=== PATIENT | female | born 2000 | race Caucasian/White ===

== ENCOUNTER 2019-04-09 16:55 | Emergency (ER) | payer OTHER, SELFPAY ==
[2019-04-09 17:02] VITALS: BP 116/86; PULSE 75; RESP 19; TEMP 36.6; O2SAT 100
[2019-04-09 17:18] LABS: Basophils Percent Auto 0.5 % (0.2-1.2); Eosinophils Absolute Auto 0.1 K/mm3 (0-0.3); Eosinophils Percent Auto 1.2 % (0-4.4); Hematocrit 41.1 % (37.0-47.0); Hemoglobin 13.8 g/dL (12.0-15.0); Immature Granulocyte Absolute 0.02 K/mm3 (0.00-0.031); Immature Granulocyte Percent A 0.2 % (0-0.5); Lymphocytes Absolute Auto 2.89 K/mm3 (0.9-3.2); Lymphocytes Percent Auto 34.3 % (18.3-44.2); Mean Corpuscular HGB Conc 33.6 g/dl (32-36); Mean Corpuscular Hemoglobin 31.3 pg (26-34); Mean Corpuscular Volume 93.2 fl (80-100); Mean Platelet Volume 9.6 fl (7.4-10.4); Monocytes Absolute Auto 0.5 K/mm3 (0.1-0.6); Monocytes Percent Auto 5.9 % (2.6-8.5); Neutrophils Absolute Auto 4.9 K/mm3 (1.3-6.7); Neutrophils Percent Auto 57.9 % (45.5-73.1); Platelet Count Result 321 k/mm3 (150-375); Red Blood Count 4.41 M/mm3 (4.2-5.4); Red Cell Distribution Width 12.5 % (11.5-14.5); White Blood Count 8.4 K/mm3 (4.5-10.0)
[2019-04-09 17:47] LABS: Beta HCG Quantitative < 2.39 mIU/ML
--- NOTE | 2019-04-09 18:33 | PC.NURSE ---
Patient states I have to go fruit picker my other daughter, can you just call me with my results. Pt was educated that results cannot be given via phone and she would need to request from medical records or with PCP. Pt states I'll come back another day when you're not busy.
== END 2019-04-09 18:35 | disposition left against medical advice (07) ==
LOC: ANHED 18:38
PROVIDERS: Emergency Provider Emergency Medicine
DX: Z53.21 Procedure and treatment not carried out due to patient leaving prior to being seen by health care provider (principal)
CPT/HCPCS: 36415; 84702; 85025; 99199

== ENCOUNTER 2019-04-09 21:58 | Emergency (ER) | payer OTHER, SELFPAY ==
[2019-04-09 22:02] VITALS: BP 125/74; PULSE 88; RESP 16; TEMP 36.4; O2SAT 99
--- NOTE | 2019-04-10 00:27 | ED.FEMALEGU ---
HPI - Female Genitourinary General Chief complaint: Urogenital-Female Stated complaint: vaginal bleeding Time Seen by Provider: 04/10/19 00:14 Source: patient and RN notes reviewed Mode of arrival: ambulatory Limitations: no limitations History of Present Illness HPI Narrative: Pt is a 18 y/o female who presents to the ED with c/o heavy vaginal bleeding starting yesterday morning. She notes that she delivered her child in November of 2018, and states that she has had irregular periods ever since. Pt notes that she began having heavy vaginal bleeding yesterday morning, stating that she is soaking 1 tampon per hour. She also reports lower ABD cramping, lightheadedness, nausea, and SOB. Pt notes that she is currently following with [facility]CHNIC[facility], Dr. Thomas. elicited complaint: vaginal bleeding Onset (ago): day(s) (1) Location of symptoms: vaginal Vaginal bleeding: heavy Associated symptoms: abdominal pain (lower ABD cramping), shortness of breath, nausea and other (lightheadedness) Related Data Allergies Allergy/AdvReac Type Severity Reaction Status Date / Time Sulfa (Sulfonamide Allergy Mild HIVES Verified 11/19/18 01:32 Antibiotics) Review of Systems Review of Systems: All systems reviewed & are unremarkable except as noted in HPI and below Respiratory: Respiratory: Reports dyspnea Gastrointestinal: Gastrointestinal: Reports abdominal pain (lower ABD cramping) and Reports nausea Genitourinary: Genitourinary: Reports abnormal vaginal bleeding Neurologic: Reports other (lightheadedness) PMFSH Past Medical History Medical History Chlamydia Depression Febrile seizures Surgical History Surgical History Amputation of finger of right hand Social History Social History Smoking status: Smoker, status unknown Gender identity (if verbalized by the patient): Female Exam Const: General: healthy appearing and no acute distress Nutritional Appearance: well nourished Resp: Effort & Inspection: normal respiratory effort Auscultation: clear to auscultation bilaterally Cardio: Rate: regular rate Rhythm: regular rhythm Heart sounds: no murmurs GI: GI Palp: No abdominal tenderness and Yes Soft to palpation Auscultation: normal bowel sounds : Speculum Exam - Vagina: vaginal bleeding (minimal) Speculum Exam - Cervix: normal appearance of the cervix and Cervical os closed Back/Spine/Pelvis: Back: other (Full ROM) Skin: General skin exam: normal color, dry skin and other (warm) Neuro: General: patient oriented x3 (alert) Speech: normal speech Extrem: General: full ROM Psych: Mental Status: mental status grossly normal Affect: normal affect Course Vital Signs Vital signs: Vital Signs Temperature 36.4 C L 04/09/19 22:02 Pulse Rate 88 04/09/19 22:02 Respiratory Rate 16 04/09/19 22:02 Blood Pressure 125/74 04/09/19 22:02 Pulse Oximetry 99 04/09/19 22:02 Temperature 36.4 C L 04/09/19 22:02 Pulse Rate 88 04/09/19 22:02 Respiratory Rate 16 04/09/19 22:02 Blood Pressure 125/74 04/09/19 22:02 Pulse Oximetry 99 04/09/19 22:02 MDM - Female Genitourinary MDM Narrative Medical decision making narrative: Bleeding is mild at this point. H/H stable. I will start her on lysteda to give her some relief and have her follow-up with her OB. Medical Records Attestation: I reviewed the patient's medical records. Lab Data Attestation: I reviewed the patient's lab results. (From visit earlier in the day) Discharge Plan Discharge Clinical Impression: Heavy menstrual period Qualifiers: Menorrahagia type: with regular cycle Qualified Code(s): N92.0 - Excessive and frequent menstruation with regular cycle Patient Disposition: Home, Self-Care Condition: Stable Instructions: Menorrhagia (ED) Prescriptions: New tranexamic acid 650
== END 2019-04-10 01:15 | disposition home or self-care (01) ==
PROVIDERS: Emergency Provider Emergency Medicine
DX: N92.0 Excessive and frequent menstruation with regular cycle (principal)
CPT/HCPCS: 36415; 84702; 85025; 99283

== ENCOUNTER 2019-06-12 09:12 | Outpatient (CLI) | payer OTHER, SELFPAY ==
--- NOTE | ~2019-06-12 | US_ITS ---
EXAMINATION: US OB <= 14 weeks fetus DATE: 06/12/2019 09:54 INDICATION: Uncertain dates. TECHNIQUE: Real-time transabdominal pelvic ultrasound was performed. COMPARISON: None. FINDINGS: The uterus measures 11.8 x 10.2 x 8.1 cm. There is an intrauterine gestational sac. The crown rump length measures 2.6 cm, which correlates with an estimated gestational age of 9 weeks and 2 day( s) (+/-) 6 day(s). heart motion is identified measuring 163 beats per minute (bpm) by M-mode Do ppler. There is a small subchorionic hematoma. The right ovary measures 2.8 x 1.8 x 2.4 cm. The left ovary measures 3.0 x 2.3 x 1.5 cm. There is no free fluid in the pelvis. IMPRESSION: 1. Single living intrauterine gestation with estimated date of delivery of 01/13/2020. 2. Small subchorionic hematoma. Reviewed, dictated and finalized at location A.
== END 2019-06-12 09:13 | disposition home or self-care (01) ==
LOC: ANHIMG 09:19
PROVIDERS: Visit Provider Obstetrics & Gynecology
DX: Z36.9 Encounter for antenatal screening, unspecified (principal); Z3A.00 Weeks of gestation of pregnancy not specified
CPT/HCPCS: 76801

== ENCOUNTER 2019-07-10 08:45 | Outpatient (CLI) | payer OTHER, SELFPAY ==
--- NOTE | ~2019-07-10 | US_ITS ---
EXAMINATION: US OB <= 14 weeks fetus DATE: 07/10/2019 09:19 INDICATION: Follow-up subchorionic hemorrhage. TECHNIQUE: Real-time transabdominal obstetric ultrasound. FINDINGS: Comparison ultrasound dated 06/12/2019 There is a single living fetus in variable presentation. There is a persistent small subchorionic hem orrhage measuring 1.7 x 1.4 x 0.5 cm. cardiac activity and movement is noted with a heart rate of 139 beats per minute. T he amniotic fluid volume is subjectively normal. The following biometric data were obtained: BPD: 24mm corresponds to gestational age 14 weeks 0 days. Head circumference: 87mm corresponds to gestational age 13 weeks 6 days. Abdominal circumference: 70mm corresponds to gestational age 13 weeks 4 days. Femur length: 10mm corresponds to gestational age 13 weeks 0 days. Estimated weight: 74grams +/- 11grams.] IMPRESSION: 1. Single living intrauterine fetus with an estimated gestational age of 13 weeks 2 days by inititia l ultrasound. Appropriate interval growth. 2. Small persistent subchorionic hemorrhage measuring 1.7 x 1.4 x 0.5 cm, slightly decreased in size compared with prior study. Reviewed, dictated and finalized at location A. IMPRESSION: 1. Single living intrauterine fetus with an estimated gestational age of 13 we eks 2 days by inititial ultrasound. Appropriate interval growth. 2. Small persistent subchorionic hemorrhage measuring 1.7 x 1.4 x 0.5 cm, sligh tly decreased in size compared with prior study.
== END 2019-07-10 08:46 | disposition home or self-care (01) ==
LOC: ANHIMG 08:49
PROVIDERS: Visit Provider Obstetrics & Gynecology
DX: O36.8910 Maternal care for other specified fetal problems, first trimester, not applicable or unspecified (principal); Z3A.13 13 weeks gestation of pregnancy
CPT/HCPCS: 76801

== ENCOUNTER 2019-08-16 14:52 | Outpatient (CLI) | payer OTHER, SELFPAY ==
--- NOTE | ~2019-08-16 | US_ITS ---
EXAMINATION: US OB /maternal detail DATE: 08/16/2019 15:45 INDICATION: anatomic survey. TECHNIQUE: Real-time ultrasound of the pelvis was performed. COMPARISON: Ultrasound 07/10/2019, 06/12/2019 FINDINGS: There is a single living fetus in vertex presentation. The placenta is anterior and fundal, 6.3 cm f rom the cervix. heart rate is 155 beats per minute (bpm). The amniotic fluid volume is subjecti vely normal. The following biometric data were obtained: Biparietal diameter (BPD): 4.3 cm; head circumference (HC): 15.9 cm; abdominal circumference (AC): 12 .2 cm; femur length (FL): 2.6 cm. These measurements are discordant with HC/AC > 95th percentile. Estimated weight is 218 g +/- 33 g, which correlates with 15th percentile when 01/13/20 is used as estimated date of delivery. As single measurements, these parameters are each equal to the following estimated gestational ages: BPD: 18 weeks 6 days. HC: 18 weeks 5 days. AC: 17 weeks 6 days. FL: 17 weeks 6 days. estimated gestational age based solely on measurements from this exam is 18 weeks 2 days +/- 1 weeks 2 days. The cerebral ventricles, cerebellum, cisterna magna, nuchal fold, and visualized portions of the spin e are normal. The heart is normal. The diaphragm, stomach, kidneys, and bladder are normal. There are two umbilical arteries to yield a 3-vessel cord. The cord insertion is normal. IMPRESSION: 1. Single living fetus in vertex presentation. 2. Estimated weight is 218 g +/- 33 g, which correlates with 15th percentile when 01/13/20 is u sed as estimated date of delivery. This date was set by ultrasound on 06/12/2019. 3. Discordant biometrics with HC/AC greater than 95th percentile. 4. Normal anatomic survey. Reviewed, dictated and finalized at location A. IMPRESSION: 1. Single living fetus in vertex presentation. 2. Estimated weight is 218 g +/- 33 g, which correlates with 15th percen tile when 01/13/20 is used as estimated date of delivery. This date was set by [facility] on 06/12/2019. 3. Discordant biometrics with HC/AC greater than 95th percentile. 4. Normal anatomic survey.
== END 2019-08-16 14:53 | disposition home or self-care (01) ==
LOC: ANHIMG 14:57
PROVIDERS: Visit Provider Obstetrics & Gynecology
DX: Z36.9 Encounter for antenatal screening, unspecified (principal); Z3A.18 18 weeks gestation of pregnancy
CPT/HCPCS: 76805

== ENCOUNTER 2019-10-29 16:02 | Outpatient (CLI) | payer OTHER, SELFPAY ==
--- NOTE | ~2019-10-29 | US_ITS ---
EXAMINATION: US OB follow up DATE: 10/29/2019 17:03 INDICATION: Follow-up size during early third trimester . TECHNIQUE: Real-time ultrasound of the pelvis was performed. The interpreting radiologist was not pre sent for the study. COMPARISON: None. FINDINGS: There is a single living fetus in breech presentation. The placenta is fundal. heart rate is 1 45 beats per minute (bpm). The amniotic fluid volume is subjectively normal. The following biometric data were obtained: BPD: 7.4 cm -> 29 weeks 4 days Head circumference: 26.6 cm -> 29 weeks 0 days Abdominal circumference: 24.0 cm -> 28 weeks 2 days Femur length: 5.3 cm -> 28 weeks 1 days These measurements are concordant. Head circumference to abdominal circumference ratio: 1.11 (normal range 1.00-1.21). Estimated weight: 1222 g (+/-) 183 g. or 2 lbs. 11 oz. (+/-) 6 oz. IMPRESSION: 1. Single living fetus in breech presentation with heart rate of 145 bpm. 2. Estimated weight is 13th percentile by Hadlock criteria when 01/12/2020 is used as the estima nikole date of delivery (WAYLON). Please correlate with clinical information or earlier ultrasounds for mos t accurate WAYLON. Reviewed, dictated and finalized at location A. IMPRESSION: 1. Single living fetus in breech presentation with heart rate of 145 bpm. 2. Estimated weight is 13th percentile by Hadlock criteria when 01/12/2020 is used as the estimated date of delivery (WAYLON). Please correlate with clinica l information or earlier ultrasounds for most accurate WAYLON.
== END 2019-10-29 16:03 | disposition home or self-care (01) ==
PROVIDERS: Visit Provider Nurse Practitioner
DX: Z36.89 Encounter for other specified antenatal screening (principal)
CPT/HCPCS: 76816

== ENCOUNTER 2019-11-08 18:55 | Observation (INO) | payer OTHER, SELFPAY ==
[2019-11-08 19:15] VITALS: TEMP 36.8
[2019-11-08 19:17] VITALS: BP 101/61; PULSE 119
[2019-11-08 19:29] LABS: Add Urine Microscopic? YES; Appearance Urine Cloudy (Clear); Bacteria Urine 1+ /hpf; Bilirubin Urine Negative (Negative); Blood Urine Negative (Negative); Color Urine Yellow (Yellow); Glucose Urine UA Negative (Negative); Ketones Urine 2+ mg/dL (Negative); Leukocyte Esterase Ur 2+ LEU/UL (Negative); Mucus Urine Moderate /lpf; Nitrate Urine Negative (Negative); Protein Urine Negative (Negative); Specific Grav Ur 1.013 (1.001-1.035); Squamous Epithelial Cell Urine Many /hpf (Few); Urobilinogen Urine Negative mg/dL (<2.0)
[2019-11-08] MEDS: ONDANSETRON INJ 4 MG/2 ML VIAL IV PUSH (20:02)
[2019-11-08] MEDS: FAMOTIDINE 20 MG/2 ML VIAL IV PUSH (20:07)
--- NOTE | 2019-11-08 20:40 | PC.NURSE ---
500ml of D5LR given. Unable to document.
--- NOTE | 2019-11-26 11:04 | PM.OBTRLD ---
OB - Triage/Final Diagnosis Evaluation Laboratory results: Laboratory Tests 11/08/19 19:18 Urine Color Yellow Urine Appearance Cloudy H Urine pH 6.0 Ur Specific Wayne 1.013 Urine Protein Negative Urine Glucose (UA) Negative Urine Ketones 2+ H Ur Blood (Man) Negative Urine Nitrate Negative Urine Bilirubin Negative Urine Urobilinogen Negative Leukocyte Esterase Rfl 2+ H Urine RBC 6-10 H Urine WBC 4-6 H Ur Squamous Epith Cells Many H Urine Bacteria 1+ H Hyaline Casts 1-2 Urine Mucus Moderate H Final Diagnosis (1) Nausea and vomiting during : Code(s): O21.9 - Vomiting of , unspecified Status: Acute
== END 2019-11-08 20:50 | disposition home or self-care (01) ==
PROVIDERS: Admitting Provider Obstetrics & Gynecology; Visit Provider Obstetrics & Gynecology
DX: O21.2 Late vomiting of pregnancy (principal); Z3A.30 30 weeks gestation of pregnancy
CPT/HCPCS: 81001; 96374; 96375; G0378; G0379; J2405

== ENCOUNTER 2019-12-28 14:36 | Outpatient (CLI) | payer OTHER, SELFPAY ==
--- NOTE | ~2019-12-28 | US_ITS ---
EXAMINATION: US OB follow up DATE: 12/28/2019 15:17 INDICATION: Third trimester. Amniotic fluid index. TECHNIQUE: Real-time ultrasound of the pelvis was performed. COMPARISON: Ultrasound 10/25/2019, 06/12/2019 FINDINGS: There is a single living fetus in vertex presentation. The placenta is fundal. heart rate is 1 52 beats per minute (bpm). The amniotic fluid index is 14.0 cm, which is normal. The following biometric data were obtained: Biparietal diameter (BPD): 9.2 cm; head circumference (HC): 33.1 cm; abdominal circumference (AC): 33 .2 cm; femur length (FL): 7.1 cm. These measurements are concordant. Estimated weight is 3076 g +/- 461 g, which correlates with 37th percentile when 01/12/20 is use d as estimated date of delivery. As single measurements, these parameters are each equal to the following estimated gestational ages: BPD: 37 weeks 2 days. HC: 37 weeks 4 days. AC: 37 weeks 1 days. FL: 36 weeks 1 days. estimated gestational age based solely on measurements from this exam is 37 weeks 0 days +/- 2 weeks 4 days. IMPRESSION: 1. Single living fetus in vertex presentation. 2. Estimated weight is 3076 g +/- 461 g, which correlates with 37th percentile when 01/12/20 is used as estimated date of delivery. Note that estimated date of delivery based on the first ultrasou nd from 06/12/2019 would be 01/13/20. Reviewed, dictated and finalized at location A. IMPRESSION: 1. Single living fetus in vertex presentation. 2. Estimated weight is 3076 g +/- 461 g, which correlates with 37th perc entile when 01/12/20 is used as estimated date of delivery. Note that estimated date of delivery based on the first ultrasound from 06/12/2019 would be 01/13/20.
== END 2019-12-28 14:37 | disposition home or self-care (01) ==
PROVIDERS: Visit Provider Obstetrics & Gynecology
DX: Z34.93 Encounter for supervision of normal pregnancy, unspecified, third trimester (principal); Z3A.37 37 weeks gestation of pregnancy
CPT/HCPCS: 76816

== ENCOUNTER 2019-12-30 06:25 | Observation (INO) | payer OTHER, SELFPAY ==
[2019-12-30 06:45] VITALS: BMI 35.9
[2019-12-30 08:15] VITALS: BP 99/55; PULSE 82
[2019-12-30 08:30] VITALS: BP 107/62; PULSE 93
[2019-12-30 08:37] VITALS: TEMP 36.6
--- NOTE | 2019-12-30 08:54 | OBADM ---
This patient, Shelby Brink, admitted to the OB room Labor/Delivery/Recovery 105 for observation. Patient/family oriented to hospital policies and general routines including ID bracelet, bed and alarms, visiting hours, pain management, procedures, bathroom and other care routines, personal items, smoking policy, room service/diet, and visiting hours. Patient/Family are encouraged to report perceived risks to care and to ask questions if they do not understand what they are told or what they should do.
--- NOTE | 2020-01-03 07:24 | PM.OBTRLD ---
OB - Triage/Final Diagnosis Visit Information Reason for evaluation: threatened labor
== END 2019-12-30 09:05 | disposition home or self-care (01) ==
PROVIDERS: Admitting Provider Obstetrics & Gynecology Gynecology; Visit Provider Obstetrics & Gynecology Gynecology
DX: O47.9 False labor, unspecified (principal); Z3A.00 Weeks of gestation of pregnancy not specified
CPT/HCPCS: G0378; G0379

== ENCOUNTER 2020-01-07 05:00 | Inpatient (IN) | payer OTHER, SELFPAY ==
[2020-01-07] VITALS (49 sets, daily range): BP systolic 87–141; BP diastolic 42–97; PULSE 67–113; RESP 16–18; TEMP 36.2–37.2; O2SAT 99–100; BMI 37.5
--- NOTE | 2020-01-07 05:00 | LDADM ---
This patient, Shelby Brink, was admitted to Labor/Delivery/Recovery 103 on 01/07/20 at 05:00. Plans for labor, pain management and were discussed with patient. Patient/family oriented to hospital policies and general routines including ID bracelet, bed and alarms, visiting hours, pain management, procedures, bathroom and other care routines, personal items, smoking policy, room service/diet and guest tray routines, infant security routines, and visiting hours. Patient/Family are encouraged to report perceived risks to care and to ask questions if they do not understand what they are told or what they should do. See OBIX for further documentation.
[2020-01-07 05:37] LABS: Basophils Percent Auto 0.2 % (0.2-1.2); Eosinophils Absolute Auto 0.1 K/mm3 (0-0.3); Eosinophils Percent Auto 0.8 % (0-4.4); Hematocrit 36.2 % (37.0-47.0); Hemoglobin 12.3 g/dL (12.0-15.0); Immature Granulocyte Absolute 0.11 K/mm3 (0.00-0.031); Immature Granulocyte Percent A 0.8 % (0-0.5); Lymphocytes Absolute Auto 2.74 K/mm3 (0.9-3.2); Lymphocytes Percent Auto 20.6 % (18.3-44.2); Mean Corpuscular Hemoglobin 31.7 pg (26-34); Mean Corpuscular Volume 93.3 fl (80-100); Mean Platelet Volume 9.4 fl (7.4-10.4); Monocytes Absolute Auto 0.7 K/mm3 (0.1-0.6); Neutrophils Absolute Auto 9.7 K/mm3 (1.3-6.7); Neutrophils Percent Auto 72.6 % (45.5-73.1); Platelet Count Result 301 k/mm3 (150-375); Red Blood Count 3.88 M/mm3 (4.2-5.4); Red Cell Distribution Width 13.5 % (11.5-14.5); White Blood Count 13.3 K/mm3 (4.5-10.0)
[2020-01-07] MEDS: OXYTOCIN 30 UNITS/NS 500 ML 30 UNITS/500 ML BAG IV CONT (05:49)
[2020-01-07] MEDS: LACTATED RINGERS 1,000 ML 125 ML IV CONT ×2 (05:49→09:12)
--- NOTE | 2020-01-07 08:42 | WPDOBADMIT ---
Obstetrics - Admit Note Admission Note: record reviewed. No pertinent additions to the history and/or any subsequent changes in the physical findings that are not consistent with the expected course of the were found. Additions to the history and/or subsequent changes in the physical findings follow. None.Here for MIL per Dr. Thomas at 39 wks. AROM with clear fluid. FHTs reactive. Cervix 4/70/-2 posterior.
--- NOTE | 2020-01-07 09:25 | WPDANESEPP ---
Anes - Eval Pre Procedure Procedure: Labor Epidural Date/Time: 01/07/20 09:25 Surgeon: Martha Preop Diagnosis: Labor Pain Pre Op Diagnosis: IOL Patient Data Age: 19 Gender: F Height: 5 ft 5 in Weight: 102.2 kg Last Vital Signs Temp 36.6 C 01/07/20 09:09 Pulse 95 01/07/20 09:24 Resp 18 01/07/20 05:15 BP 112/71 01/07/20 09:24 Pulse Ox 100 01/07/20 09:12 Allergies Allergy/AdvReac Type Severity Reaction Status Date / Time Sulfa (Sulfonamide Allergy Mild HIVES Verified 11/19/18 01:32 Antibiotics) Home Medications Medication Instructions Recorded Confirmed Type No Home Medications 01/07/20 01/07/20 History Laboratory Tests 01/07/20 01/07/20 01/07/20 05:30 05:30 05:30 WBC 13.3 K/mm3 H K/mm3 (4.5-10.0) RBC 3.88 M/mm3 L M/mm3 (4.2-5.4) Hgb 12.3 g/dL g/dL (12.0-15.0) Hct 36.2 % L % (37.0-47.0) MCV 93.3 fl fl (80-100) MCH 31.7 pg pg (26-34) MCHC 34.0 g/dl g/dl (32-36) RDW 13.5 % % (11.5-14.5) Plt Count 301 k/mm3 k/mm3 (150-375) MPV 9.4 fl fl (7.4-10.4) Immature Gran % (Auto) 0.8 % H % (0-0.5) Neut % (Auto) 72.6 % % (45.5-73.1) Lymph % (Auto) 20.6 % % (18.3-44.2) Carlton % (Auto) 5.0 % % (2.6-8.5) Eos % (Auto) 0.8 % % (0-4.4) Baso % (Auto) 0.2 % % (0.2-1.2) Lymph # (Auto) 2.74 K/mm3 K/mm3 (0.9-3.2) Carlton # (Auto) 0.7 K/mm3 H K/mm3 (0.1-0.6) Eos # (Auto) 0.1 K/mm3 K/mm3 (0-0.3) Baso # (Auto) 0.0 K/mm3 K/mm3 (0.0-0.1) Abs Immat Gran (auto) 0.11 K/mm3 H K/mm3 (0.00-0.031) Absolute Neuts (auto) 9.7 K/mm3 H K/mm3 (1.3-6.7) Absolute Nucleated RBC 0.0 K/mm3 K/mm3 (0.0-0.012) Nucleated RBC % 0.0 % % (0.0-0.2) RPR Pending Blood Type O Positive Antibody Screen Negative : gestational age (WAYLON 01/14/20) Patient hx anesthesia problems: none Family hx anesthesia problems: none PMFSH Past Medical History Medical History (Updated 11/26/19 @ 11:04 by Armand Thomas MD) Chlamydia Depression Febrile seizures Nausea and vomiting during Surgical History Surgical History Amputation of finger of right hand Family History Family History (Updated 01/07/20 @ 05:25 by Pebbles Armstrong RN) Other Unknown family medical history Social History Social History Smoking status: Never smoker Substance use: never Gender identity (if verbalized by the patient): Female Spiritual care concerns: No Exam Day of Procedure 01/07/20 09:25
[2020-01-07 09:57] LABS: Rapid Plasma Reagin Non-Reactive (NonReactive)
[2020-01-07] MEDS: SODIUM CHLORIDE 0.9% IV 300 ML 600 ML I-UTERINE (10:15)
--- NOTE | 2020-01-07 11:16 | PM.OBPRVD ---
OB - Delivery Note Procedure Delivery date: 01/07/20 Procedure: Intrapartal events: Precipitous Labor < 3 hours Induction method: AROM and per pitocin protocol Delivery monitor: external FHT, external uterine and internal uterine Route of delivery: Laceration Description: None Specimen: No Estimated blood loss (mL): 100 Anesthesia type: Epidural Disposition: floor Baby Date of : 01/07/20 Time of : 10:43 Weeks of gestation at delivery: 39 gender: Female Weight (pounds): 6 Weight (ounces): 13 presentation: vertex position: Left Occiput Anterior cord vessel description: 3 Vessels and Clamped/Cut score one minute: 8 score five minutes: 9
[2020-01-07] MEDS: OXYTOCIN 30 UNITS/NS 500 ML 30 UNITS/500 ML BAG 125 UNITS IV CONT (11:18)
--- NOTE | 2020-01-07 13:25 | PC.NURSE ---
Patient transferred to post room #290 via wheelchair. Support person present. Oriented to unit, room, information board, rooming in, admission packet and security measures. Patient verbalizes understanding.
[2020-01-07] MEDS: IBUPROFEN 600 MG TABLET PO ×2 (13:50→20:48)
--- NOTE | 2020-01-07 14:15 | PC.NURSE ---
Consulted with patient, mother reports this to be third child to breastfeed. Reviewed feeding cues, frequencies, duration of feedings, feeding elimination flow sheet, and signs of adequate intake. Demonstrated stimulation techniques to wake infant for feeding. Assisted with infant to breast. Reviewed positioning/alignment in cross cradle, holding breast in U hold and guided asymmetrical latch on. Discussed rational for each. was able to latch correctly. nursed eagerly, with steady draws and frequent swallowing noted. Reviewed signs of a correct latch, effective nursing and suck swallow ratio. was able to maintain latch without discomfort to mother. Infant released latch, mother was able to independently latch correctly. Nipple care reviewed. Suggested mother stimulate infant while feeding to keep awake and nursing effectively for increased intake and to assist with maintaining deep latch. Instructed mother to call out for RN assistance if she is unable to latch infant for feeding or she has discomfort with nursing. Instructed feeding should be initiated three hours from start of last feeding or if feeding cues are noted before. Mother voiced understanding of information shared.
--- NOTE | 2020-01-07 15:00 | PC.NURSE ---
Patient transferred to post room #290 via ( . Support person present. Oriented to unit, room, information board, rooming in, admission packet and security measures. Patient verbalizes understanding.
[2020-01-08] MEDS: ACETAMINOPHEN 325 MG TABLET 650 MG PO (01:18)
[2020-01-08] MEDS: IBUPROFEN 600 MG TABLET PO (04:55)
[2020-01-08 05:28] LABS: Hematocrit 33.4 % (37.0-47.0); Hemoglobin 11.2 g/dL (12.0-15.0)
[2020-01-08 07:30] VITALS: BP 110/68; PULSE 63; RESP 18; TEMP 37.1; O2SAT 96
--- NOTE | 2020-01-08 07:42 | PM.OBPNVD ---
OB - PN: Subj Subjective Date/time seen: 01/08/20 07:42 Patient comments: no complaints and pain well controlled baby status: doing well OB - PN: Obj Data Labs CBC & Chem 7: 01/08/20 04:51 Labs: Laboratory Results - last 24 hr 01/07/20 01/08/20 05:30 04:51 Hgb 11.2 L Hct 33.4 L RPR Non-reactive OB - PN A/P Plan day: 1 Plan: routine care, discharge home and follow up 6 weeks Comments: Unsure control Time Spent With Patient Time: Total time spent is greater than 50% in coordination of care (as documented) at patient's floor/unit and/or counseling patient: Exam : Bimanual exam- vagina & uterus: other (Uterus firm, nt @U)
--- NOTE | 2020-01-08 08:58 | WPDANLDPN2 ---
Anes-Prog Note L&D Date/Time: 01/08/20 08:58 Comfortable throughout: labor and delivery Neuraxial method: epidural Epidural/Spinal procedure site: clean & non-tender Neuro status: Neuro function grossly intact. Cardiovascular status: normal Respiratory status: normal Airway patency: baseline Mental status: baseline Post-Op hydration status: normal Vital Signs: Last Vital Signs Temp 37.2 C 01/07/20 20:45 Pulse 80 01/07/20 20:45 Resp 16 01/07/20 20:45 BP 100/42 L 01/07/20 20:45 Pulse Ox 100 01/07/20 20:45 Pain score (VAS): 4/10 Post-procedural complaints: other (Pt has headache, across forehead and temples and through eyes, improves lying down, eyes sensitive to light ) Patient feedback: Patient satisfied with anesthetic care.
--- NOTE | 2020-01-08 09:42 | P.PCNANE_ITS ---
Anes - Epidural Blood Patch PN Date/Time: 01/08/20 09:42 Consent: I have discussed with the patient/family/POA, the rationale of a lumbar epidural autologous blood patch for the treatment of post-dural puncture headache (spinal headache), including associated potential risks, benefits, comp lications and side effects. I have also discussed more conservative treatment options such as intravenous hydration, caffeine and non-prescription analgesics. The patient/family/POA, understand(s) and wish(es) to proceed with epidural autologous blood patch as treatment for the patient's post-dural puncture headache. Time-Out: A pre-procedural Time-Out was completed immediately before starting the procedure and confirmed: Patient Identification, Site, Procedure, Patient Position and the Availability of Requisite Equipment. Clinical Indications: Frontal/Temporal Headache improved with lying flat, light sensitivity, pt requests Epidural Blood Patch Epidural Insertion Note Patient position: sitting Skin prep: chlorhexidine and sterile drape Needle: 18 gauge Tuohy-Schliff Technique: loss of resistance Skin anesthesia: lidocaine 1% Observations: tolerated well Complications: none and other (20 ml blood drawn sterilely from JOVITA Calero RN and injected easiliy to Epidural Space. Pt with immediate relief of headache. VSS throughout. Resting in bed comfortably, Instructions given to patient)
--- NOTE | 2020-01-08 12:00 | PC.NURSE ---
Patient received instruction on viewing the discharge video Mother & Baby Care, The First Two Weeks . Patient was given the opportunity and encouraged to ask questions. Patient verbalized understanding of information shared and has been given the mother/baby guide for home reference.
--- NOTE | 2020-01-25 11:57 | PM.DS ---
DS: Admitting Diagnosis Admitting Diagnosis Admitting Diagnosis: IOL DS: Discharge Diagnosis Discharge Diagnosis (1) (normal spontaneous vaginal delivery): Code(s): O80 - Encounter for full-term uncomplicated delivery Status: Acute DS: Summary Time Spent with Patient Time attestation: Total time spent providing and/or coordinating discharge services: Discharge Plan Discharge Attending physician on discharge: Armand Thomas Discharging Clinician: Katelyn Bryson Anticipated Discharge Date/Time: 01/08/20 07:43 Patient Disposition: Home, Self-Care Activity: may shower and pelvic rest Diet: regular Discharge Instructions: Education: Mom and Baby Guide and Preeclampsia Handout Given to: Mother Follow-Up: Call your delivering provider's office for an appointment to be seen in: 6 Weeks Mom and baby should come to the [facility] for the follow-up appointment. Appointment Date/Time: January 09, 2020 at 9:00 am What to expect at your follow-up visit: Physical Assessment Call [phone] if you are unable to keep your appointment time. BREAST CARE: * Wear a snug supportive bra. * For engorgement discomfort: Breast Feeding: * Apply warm moist washcloths * Express milk as needed to relieve engorgement * Wear loose clothing * For sore nipples: * Identify correct latch-on * Apply warm moist washcloths before and after nursing * Air dry nipples after nursing * May apply Lansinoh cream to nipples EPISIOTOMY/PERINEAL CARE: * Until bleeding stops, use your shaye bottle after urinating * Change your pad frequently throughout the day * You may take sitz baths several times a day (fill your bathtub with warm water and soak for 20 minutes.) Do NOT bathe in the water * No tub baths until seen by your physician - You may shower ACTIVITY: * Rest as much as possible. * Do not exercise or lift anything heavier than your baby (such as laundry or other children.) * Avoid stairs or driving as much as possible. * Do not put anything into the vagina. No douching, tampons, or sexual activity until seen by physician. NOTIFY PHYSICIAN IF YOU HAVE ANY QUESTIONS OR IF ANY OF THE FOLLOWING SYMPTOMS OCCUR: * If your perineum becomes red, swollen, or more painful than what you have experienced in the hospital. * If your vaginal bleeding becomes foul smelling. * If your vaginal bleeding becomes more heavy than a period or if your bleeding changes from pink to bright red. However, you may pass an occasional walnut-sized clot once or twice for the first week . * If you experience a sharp, shooting pain in you calves. * If you discover a hard, reddened area on your breast or if you experience flu-like symptoms. DIET: * Eat regular, well-balanced meals. * Drink plenty of fluids daily. If , drink to thirst. Stand Alone Forms: General Discharge Information Follow-up/Referrals: Armand Thomas MD [Physician] - Discharge Medications: No Action No Home Medications RF: 0 Date of admission: 01/07/20 05:00 Primary Care Provider: PHYSICIAN,SENIOR ACCOUNTS PAYABLE SPECIALIST Admitting Provider: Armand Thomas Attending physician on admission: Katelyn Bryson Condition: Stable
== END 2020-01-08 13:23 | disposition home or self-care (01) | DRG 560 ==
LOC: ANHLDR 11:14 → ANHOB2 01-08 07:43 → ANHLDR 01-10 08:34 → ANHOB2 01-10 08:34
PROVIDERS: Admitting Provider Obstetrics & Gynecology; Visit Provider Obstetrics & Gynecology Gynecology
DX: O62.3 Precipitate labor (principal); Z37.0 Single live birth; Z3A.39 39 weeks gestation of pregnancy; O99.344 Other mental disorders complicating childbirth; F32.9 Major depressive disorder, single episode, unspecified; O89.4 Spinal and epidural anesthesia-induced headache during the puerperium
CPT/HCPCS: 36415; 85014; 85018; 85025; 86592; 86850; 86900; 86901; A9270; J2590; J2795; J7030; J7120

== ENCOUNTER 2021-04-10 15:15 | Outpatient (CLI) | payer OTHER, SELFPAY ==
--- NOTE | ~2021-04-10 | US_ITS ---
US OB <= 14 weeks fetus DATE: 04/10/2021 15:47 INDICATION: Uncertain dates TECHNIQUE: Real time imaging and doppler analysis COMPARISON: None FINDINGS: The uterus measures 11.0 cm height, 7.6 cm transverse and 6.1 cm anteroposterior dimension. Intrauterine gestational sac with pole and yolk sac are identified. heart rate of 126 be ats per minute. [place] rump lenght measures 0.65, consistent with estimated gestational age of 6 weeks 4 days, WAYLON 11/06 08/26. Right ovary is not visualized. Left ovary 3.9 x 2.8 x 2.6 cm with 1.6 cm cyst. No pelvic free fluid is detected. IMPRESSION: Estimated gestational age of 6 weeks 4 days; WAYLON 11/30/21 Reviewed, dictated and finalized at Location A. Reviewed, dictated and finalized at location B. OM HOOP DRIVER
== END 2021-04-10 15:16 | disposition home or self-care (01) ==
PROVIDERS: Visit Provider Nurse Practitioner
DX: Z36.87 Encounter for antenatal screening for uncertain dates (principal); Z3A.01 Less than 8 weeks gestation of pregnancy
CPT/HCPCS: 76801

== ENCOUNTER 2021-06-29 09:11 | Outpatient (CLI) | payer OTHER, SELFPAY ==
--- NOTE | ~2021-06-29 | US_ITS ---
EXAMINATION: US OB /maternal detail DATE: 06/29/2021 10:40 INDICATION: Second trimester anatomic survey TECHNIQUE: Real-time ultrasound of the pelvis was performed. COMPARISON: None. FINDINGS: There is a single living fetus in breech presentation. The placenta is anterior. heart rate is 147 beats per minute (bpm). cardiac activity and movement are noted. The amniotic fluid index is subjectively normal. The following anatomy was identified as normal: 4 chamber heart 3 vessel cord cord insertion kidneys urinary bladder stomach spine diaphragm ventricles cisterna magna cerebellum The following biometric data were obtained: Biparietal diameter (BPD): 4.0 cm; head circumference (HC): 14.8 cm; abdominal circumference (AC): 13 .5 cm; femur length (FL): 2.7 cm. These measurements are concordant. Estimated weight is 244 g +/- 36 g, which correlates with the 78th percentile when 11/30/2021 is used as estimated date of delivery. As single measurements, these parameters are each equal to the following estimated gestational ages w ith ranges of +/- 2 standard deviations: BPD: 18 weeks 2 days +/- 1 weeks 5 days. HC: 18 weeks 0 days +/- 1 weeks 1 days. AC: 19 weeks 0 days +/- 2 weeks 0 days. FL: 18 weeks 1 days +/- 1 weeks 3 days. estimated gestational age based solely on measurements from this exam is 18 weeks 3 days +/- 1 weeks 2 days. IMPRESSION: 1. Single living fetus in breech presentation. 2. Estimated weight is 244 g +/- 36 g, which correlates with the 78th percentile when 11/30/2021 is used as estimated date of delivery. Reviewed, dictated and finalized at location F. IMPRESSION: 1. Single living fetus in breech presentation. 2. Estimated weight is 244 g +/- 36 g, which correlates with the 78th per centile when 11/30/2021 is used as estimated date of delivery.
== END 2021-06-29 09:12 | disposition home or self-care (01) ==
LOC: ANHIMG 09:12
PROVIDERS: Visit Provider Obstetrics & Gynecology Gynecology
DX: Z36.9 Encounter for antenatal screening, unspecified (principal); O32.1XX0 Maternal care for breech presentation, not applicable or unspecified
CPT/HCPCS: 76805

== ENCOUNTER 2021-10-08 15:32 | Outpatient (CLI) | payer OTHER, SELFPAY ==
--- NOTE | ~2021-10-08 | US_ITS ---
EXAMINATION: US OB follow up DATE: 10/08/2021 16:21 INDICATION: Estimated size greater than expected for estimated gestational age TECHNIQUE: Real-time ultrasound of the pelvis was performed. The interpreting radiologist was not pre sent for the study. COMPARISON: 06/29/2021 FINDINGS: There is a single living fetus in vertex presentation. The placenta is anterior. heart rate is 145 beats per minute (bpm). The amniotic fluid index is 16.7 cm, which is normal (5th%-95%: 8.6-24. 2 cm at 32 weeks estimated gestational age). The following biometric data were obtained: BPD: 7.9 cm -> 31 weeks 4 days Head circumference: 29.3 cm -> 32 weeks 3 days Abdominal circumference: 28.5 cm -> 32 weeks 4 days Femur length: 6.5 cm -> 33 weeks 4 days These measurements are concordant. Head circumference to abdominal circumference ratio: 1.03 (normal range 0.96-1.12). Estimated weight: 2040 g (+/-) 306 g or 4 lbs. 8 oz. (+/-) 11 oz. IMPRESSION: 1. Single living fetus in vertex presentation with heart rate of 145 bpm. 2. Normal amniotic fluid index of 16.8 cm. 3. Estimated weight is 37th percentile by Hadlock criteria when 11/29/2021 is used as the estima nikole date of delivery (WAYLON). Please correlate with clinical information or earlier ultrasounds for mos t accurate WAYLON. Reviewed, dictated and finalized at location A. IMPRESSION: 1. Single living fetus in vertex presentation with heart rate of 145 bpm. 2. Normal amniotic fluid index of 16.8 cm. 3. Estimated weight is 37th percentile by Hadlock criteria when 11/29/2021 is used as the estimated date of delivery (WAYLON). Please correlate with clinica l information or earlier ultrasounds for most accurate WAYLON.
== END 2021-10-08 15:33 | disposition home or self-care (01) ==
PROVIDERS: Visit Provider Obstetrics & Gynecology Gynecology
DX: O36.63X1 Maternal care for excessive fetal growth, third trimester, fetus 1 (principal); Z3A.32 32 weeks gestation of pregnancy
CPT/HCPCS: 76816

== ENCOUNTER 2021-11-02 14:42 | Outpatient (RCR) | payer OTHER, SELFPAY ==
[2021-10-30 12:49] VITALS: BP 119/76; PULSE 83
== END 2021-12-02 10:12 | disposition home or self-care (01) ==
LOC: ANHOBOP 14:42
PROVIDERS: Visit Provider Obstetrics & Gynecology Gynecology
DX: O99.891 Other specified diseases and conditions complicating pregnancy (principal); Z86.16 Personal history of COVID-19; Z3A.35 35 weeks gestation of pregnancy
CPT/HCPCS: 59025

== ENCOUNTER 2021-11-02 15:17 | Outpatient (CLI) | payer OTHER, SELFPAY ==
--- NOTE | ~2021-11-02 | US_ITS ---
EXAMINATION: US OB follow up DATE: 11/02/2021 16:16 INDICATION: Size greater than dates. Third trimester. TECHNIQUE: Real-time ultrasound of the pelvis was performed. COMPARISON: Ultrasound 10/08/2021, 04/10/2021 FINDINGS: There is a single living fetus in vertex presentation. The placenta is anterior. heart rate is 114 beats per minute (bpm). The cervical length is normal. The amniotic fluid index is 17.3 cm, whic h is normal. The following biometric data were obtained: Biparietal diameter (BPD): 8.7 cm; head circumference (HC): 32.3 cm; abdominal circumference (AC): 32 .8 cm; femur length (FL): 7.1 cm. These measurements are concordant. Estimated weight is 2921 g +/- 438 g, which correlates with the 52nd percentile when 11/27/21 is used as estimated date of delivery. As single measurements, these parameters are each equal to the following estimated gestational ages: BPD: 35 weeks 1 days. HC: 36 weeks 3 days. AC: 36 weeks 5 days. FL: 36 weeks 1 days. estimated gestational age based solely on measurements from this exam is 36 weeks 1 days +/- 2 weeks 4 days. IMPRESSION: 1. Single living fetus in vertex presentation. 2. Estimated weight is 2921 g +/- 438 g, which correlates with the 52nd percentile when 2 is used as estimated date of delivery. Note that estimated date of delivery based on the first ultr asound from 04/10/2021 would be 11/30/2021. Reviewed, dictated and finalized at location A. IMPRESSION: 1. Single living fetus in vertex presentation. 2. Estimated weight is 2921 g +/- 438 g, which correlates with the 52nd percentile when 11/27/21 is used as estimated date of delivery. Note that estima nikole date of delivery based on the first ultrasound from 04/10/2021 would be 2021.
== END 2021-11-02 15:18 | disposition home or self-care (01) ==
PROVIDERS: Visit Provider Obstetrics & Gynecology Gynecology
DX: O36.63X0 Maternal care for excessive fetal growth, third trimester, not applicable or unspecified (principal); Z3A.36 36 weeks gestation of pregnancy
CPT/HCPCS: 59025; 76816

== ENCOUNTER 2021-11-11 14:59 | Outpatient (CLI) | payer OTHER, SELFPAY ==
[2021-11-11 16:12] VITALS: BP 120/74; PULSE 104
--- NOTE | 2021-11-19 11:24 | PM.OBTRLD ---
OB - Triage/Final Diagnosis Visit Information Date of evaluation: 11/11/21 Reason for evaluation: other (rule out ROM. Membranes intact. ) Comments/Additional reasons for admission: I have assessed the risk for this patient, Shelby Brink, and determined that she would benefit from observation care.
== END 2021-11-11 16:21 | disposition home or self-care (01) ==
LOC: ANHOBOP 16:09
PROVIDERS: Visit Provider Obstetrics & Gynecology Gynecology
DX: O42.92 Full-term premature rupture of membranes, unspecified as to length of time between rupture and onset of labor (principal); Z3A.37 37 weeks gestation of pregnancy
CPT/HCPCS: 59025; 84112

== ENCOUNTER 2021-11-15 09:50 | Observation (INO) | payer OTHER, SELFPAY ==
--- NOTE | 2021-11-15 12:20 | OBADM ---
This patient, Shelby Brink, admitted to the OB room Labor/Delivery/Recovery 106 for observation. Patient/family oriented to hospital policies and general routines including ID bracelet, bed and alarms, visiting hours, pain management, procedures, bathroom and other care routines, personal items, smoking policy, room service/diet, and visiting hours. Patient/Family are encouraged to report perceived risks to care and to ask questions if they do not understand what they are told or what they should do.
--- NOTE | 2021-11-19 11:20 | PM.OBTRLD ---
OB - Triage/Final Diagnosis Visit Information Date of evaluation: 11/15/21 Comments/Additional reasons for admission: I have assessed the risk for this patient, Shelby Brink, and determined that she would benefit from observation care.
--- NOTE | 2021-11-19 11:25 | PM.OBTRLD ---
OB - Triage/Final Diagnosis Visit Information Date of evaluation: 11/15/21 Reason for evaluation: threatened labor Comments/Additional reasons for admission: I have assessed the risk for this patient, Shelby Brink, and determined that she would benefit from observation care.
== END 2021-11-15 12:25 | disposition home or self-care (01) ==
LOC: ANHLDR 11-17 15:17
PROVIDERS: Admitting Provider Obstetrics & Gynecology Gynecology; Visit Provider Advanced Practice Midwife
DX: O47.1 False labor at or after 37 completed weeks of gestation (principal); O46.93 Antepartum hemorrhage, unspecified, third trimester; Z3A.37 37 weeks gestation of pregnancy
CPT/HCPCS: G0378; G0379

== ENCOUNTER 2021-11-16 06:44 | Inpatient (IN) | payer OTHER, SELFPAY ==
[2021-11-16] VITALS (21 sets, daily range): BP systolic 90–131; BP diastolic 49–84; PULSE 60–159; RESP 16–20; TEMP 36.3–36.9; O2SAT 94–100; BMI 38.2
[2021-11-16] MEDS: AMPICILLIN 2 GM/NS 100 ML 2 GM/100 ML BAG IVPB (07:15)
[2021-11-16] MEDS: LACTATED RINGERS 1,000 ML 125 ML IV CONT (07:15)
[2021-11-16 07:42] LABS: Basophils Absolute Auto 0.1 K/mm3 (0.0-0.1); Basophils Percent Auto 0.4 % (0.2-1.2); Eosinophils Absolute Auto 0.1 K/mm3 (0-0.3); Eosinophils Percent Auto 0.4 % (0-4.4); Hematocrit 36.9 % (37.0-47.0); Hemoglobin 12.3 g/dL (12.0-15.0); Immature Granulocyte Absolute 0.09 K/mm3 (0.00-0.031); Immature Granulocyte Percent A 0.7 % (0-0.5); Lymphocytes Percent Auto 21.4 % (18.3-44.2); Mean Corpuscular HGB Conc 33.3 g/dl (32-36); Mean Corpuscular Hemoglobin 30.1 pg (26-34); Mean Corpuscular Volume 90.4 fl (80-100); Monocytes Absolute Auto 0.8 K/mm3 (0.1-0.6); Monocytes Percent Auto 5.7 % (2.6-8.5); Neutrophils Absolute Auto 9.7 K/mm3 (1.3-6.7); Neutrophils Percent Auto 71.4 % (45.5-73.1); Platelet Count Result 283 k/mm3 (150-375); Red Blood Count 4.08 M/mm3 (4.2-5.4); Red Cell Distribution Width 13.2 % (11.5-14.5); White Blood Count 13.5 K/mm3 (4.5-10.0)
--- NOTE | 2021-11-16 08:20 | WPDOBADMIT ---
Obstetrics - Admit Note Admission Note: record reviewed. No pertinent additions to the history and/or any subsequent changes in the physical findings that are not consistent with the expected course of the were found. Additions to the history and/or subsequent changes in the physical findings follow. None.
--- NOTE | 2021-11-16 08:21 | PM.OBPNLAB ---
Pain Control Date/time seen: 11/16/21 08:15 Pain control: tolerating well Pelvic Exam Dilation (cm): 8 Effacement (%): 100 station: 0 Amniotic membrane status: Intact Contractions Monitor mode: External Contraction frequency: 3 Contraction pattern: Regular Contraction intensity: Strong/Firm Status status: Category ll Assessment and Plan Assessment: active labor Comments: CNM to bedside. Patient with frequent regular contractions. Normal amount of bloody show present. Patient in active labor with intermittent urge to bear down. After about 5 contractions, patient requested repeat vaginal exam. Cervix found to be 8 cm / 100% effaced / 0 station. Patient desires epidural at this time. Anesthesia notified. Anticipate vaginal .
--- NOTE | 2021-11-16 08:49 | PM.OBPNLAB ---
Pain Control Date/time seen: 11/16/21 08:49 Pelvic Exam Dilation (cm): 8 Effacement (%): 100 station: 0 Amniotic membrane status: Intact Comments: Patient unable to get epidural anesthesia. Strongly desires repair membranes to facilitate . Discussed risks and benefits. Amniotomy performed with small amount of clear fluid returned. Moderate amount of bloody show present but within normal limits. head well applied to cervix. Anticipate vaginal . Contractions Monitor mode: External Contraction frequency: 3 Contraction pattern: Regular Contraction intensity: Strong/Firm Status status: Category ll Assessment and Plan Plan: continuous present management
--- NOTE | 2021-11-16 09:12 | WPDANESSPN ---
Anes - Spinal Procedure Note Date/Time: 11/16/21 09:12 Problems: Epidural attempt during labor - patient 9 cm dilated- unable to get past bone endpoint at L3-4. After reviewing previous epidural in 2019 it appears the same issue was had then as well, Patient also received blood patch last time. After 2-3 minutes of attempt, patient refused epidural as contraction pain was too much and preferred to lay down.
[2021-11-16] MEDS: OXYTOCIN 30 UNITS/NS 500 ML 30 UNITS/500 ML BAG 999 UNITS IV CONT (09:31)
[2021-11-16 09:40] LABS: HIV 1/2 Ab P24 Ag Result Negative (Negative)
--- NOTE | 2021-11-16 09:47 | PM.OBPRVD ---
OB - Delivery Note Procedure Delivery date: 11/16/21 Procedure: Events: Positive Group B Strep (GBS) Induction method: None Delivery augmentation: Rupture of Membranes Delivery monitor: External FHT and External Uterine Route of delivery: Episiotomy description: None Laceration Description: None Specimen: No Quantitative Blood Loss (ml): 150 Anesthesia type: None Disposition: Floor Narrative: Patient progressed to complete dilation and had spontaneous pushing efforts. She pushed 3 times and brought the head to a crown. With the next push she delivered the entire remainder of the . There was a loose nuchal cord that the fetus was delivered through. The infant was then placed on maternal abdomen and dried and stimulated. There was spontaneous delivery of the placenta a short time later in [place] presentation. There was excellent uterine tone and hemostasis. Perineum intact. and delivery room. Baby Date of : 11/16/21 Time of : 09:31 Weeks of gestation at delivery: 38 Infant gender: Male Weight (pounds): 7 Weight (ounces): 1 presentation: vertex position: Right Occiput Anterior Placenta delivery description: Spontaneous ([place] presentation) Cord Vessel Description: 3 Vessels score one minute: 9 score five minutes: 9
--- NOTE | 2021-11-16 09:51 | PM.OBDSVD ---
DS: Admitting Diagnosis Discharge Date 11/18/21 Admitting Diagnosis Labor at term. . GBS+ DS: Discharge Diagnosis Discharge Diagnosis (1) (normal spontaneous vaginal delivery): Code(s): O80 - Encounter for full-term uncomplicated delivery Status: Acute (2) Mother currently breast-feeding: Code(s): Z39.1 - Encounter for care and examination of lactating mother Status: Acute OB - DS: Summary OB Procedures : NST and Ultrasound OB Procedures Intrapartum: Spontaneous Vag Delivery and GBS prophylaxis OB Procedures: : None Peripartum Data Delivery Method: Natural Vaginal Laceration Description: None Episiotomy description: None complications: none Status at Discharge Overall status at discharge: patient is progressing back to baseline Time Spent with Patient Time attestation: Total time spent providing and/or coordinating discharge services: Exam Narrative: Alert and oriented. Mood is pleasant and cooperative. Urinating without difficulty. Denies passing any large clots. Perineum with minimal edema. Const: General: no acute distress Orientation/consciousness: patient oriented x3 Limitations: no limitations Resp: Effort & Inspection: normal respiratory effort Auscultation: clear to auscultation bilaterally Cardio: Rate: regular rate GI: Inspection: normal to inspection Neuro: General: patient oriented x3 Extrem: General: normal to inspection Psych: Appearance: grossly normal Mental Status: mental status grossly normal Affect: normal affect Thought process: Normal thought process present DS: Data Data Completed and Pending Labs on day of discharge: Labs from last 24 hours 11/16/21 11/16/21 11/16/21 08:40 07:16 07:16 WBC RBC Hgb Hct MCV MCH MCHC RDW Plt Count MPV Immature Gran % (Auto) Neut % (Auto) Lymph % (Auto) [place] % (Auto) Eos % (Auto) Baso % (Auto) Lymph # (Auto) [place] # (Auto) Eos # (Auto) Baso # (Auto) Abs Immat Gran (auto) Absolute Neuts (auto) Absolute Nucleated RBC Nucleated RBC % RPR Pending HIV 1&2 Ab/P24 Ag 4thGn Negative Blood Type O Positive Antibody Screen Negative 11/16/21 07:16 WBC 13.5 H RBC 4.08 L Hgb 12.3 Hct 36.9 L MCV 90.4 MCH 30.1 MCHC 33.3 RDW 13.2 Plt Count 283 MPV 10.0 Immature Gran % (Auto) 0.7 H Neut % (Auto) 71.4 Lymph % (Auto) 21.4 [place] % (Auto) 5.7 Eos % (Auto) 0.4 Baso % (Auto) 0.4 Lymph # (Auto) 2.90 [place] # (Auto) 0.8 H Eos # (Auto) 0.1 Baso # (Auto) 0.1 Abs Immat Gran (auto) 0.09 H Absolute Neuts (auto) 9.7 H Absolute Nucleated RBC 0.0 Nucleated RBC % 0.0 RPR HIV 1&2 Ab/P24 Ag 4thGn Blood Type Antibody Screen Discharge Plan Discharge Attending physician on discharge: Katelyn Bryson Discharging Clinician: Precious Chin Anticipated Discharge Date/Time: 11/18/21 07:59 Patient Disposition: Home, Self-Care Activity: july shower Diet: as tolerated and regular Patient Instructions: Antibiotic Form Stand Alone Forms: General Discharge Information Follow-up/Referrals: Precious Cihn, DANIELAM [Certified Nurse Speech Therapist Technician] - (6 weeks post ) Discharge Medications: New ibuprofen 600 mg Tablet 600 mg PO Q6H PRN (Reason: Cramping) 30 Days Qty: 45 0RF KPN Tablet 1 tab PO DAILY 90 Days Qty: 90 3RF norethindrone (contraceptive) [Ortho Micronor] 0.35 mg tablet 0.35 mg PO DAILY Qty: 84 0RF Rx Instructions: Start taking 3-4 weeks post , after milk supply well established Continued ergocalciferol (vitamin D2) [Vitamin D2] 1,250 mcg (50,000 unit) Capsule 1,250 mcg PO WEEKLY prenat.vits,fanny,[id number] Tablet 1 tablet PO DAILY 90 Days Qty: 90 3RF Date of admission: 11/16/21 06:44 Primary Care Provider: PHYSICIAN,BUSINESS BANKING SALES ASSISTANT Admitting Provider: Katelyn Bryson [facility]
[2021-11-16] MEDS: IBUPROFEN 600 MG TABLET (10:11)
[2021-11-16] MEDS: OXYTOCIN 30 UNITS/NS 500 ML 30 UNITS/500 ML BAG 125 UNITS IV CONT (10:12)
--- NOTE | 2021-11-16 12:21 | PC.NURSE ---
Patient transferred to post room # via ( 292 ). Support person present. Oriented to unit, room, information board, rooming in, admission packet and security measures. Patient verbalizes understanding.
[2021-11-16 13:49] LABS: Rapid Plasma Reagin Non-Reactive (NonReactive)
[2021-11-16] MEDS: DOCUSATE SODIUM 100 MG CAPSULE PO (16:10)
[2021-11-16] MEDS: LANOLIN (LANSINOH) 7.5 GM CREAM 1 APPLIC TOPICAL (16:10)
[2021-11-16] MEDS: IBUPROFEN 600 MG TABLET PO (21:26)
[2021-11-17] MEDS: IBUPROFEN 600 MG TABLET PO ×2 (03:51→10:06)
[2021-11-17 03:55] VITALS: BP 104/58; PULSE 79; RESP 16; TEMP 36.1
[2021-11-17 04:49] LABS: Hematocrit 32.7 % (37.0-47.0); Hemoglobin 10.6 g/dL (12.0-15.0)
--- NOTE | 2021-11-17 07:30 | PC.NURSE ---
Breast pump provided due to maternal choice because baby will not latch. Instructions given on cleaning, care, usage, that there should be no pain, pumping schedule for milk production, collection, and storage of human milk. Parents are encouraged to record pumping schedule on the [feeding sheet/pumping log]. Patient was assessed for correct placement, flange size, to pump for comfort and nipple stretching/stimulation for adequate milk production every 3 hours (8 times in 24 hours). Mother voiced understanding of the education shared along with mom and baby guide for additional resource information. Reported to the primary RN.
--- NOTE | 2021-11-17 07:56 | PM.OBPNVD ---
OB - PN: Subj Subjective Date/time seen: 11/17/21 07:25 Patient comments: no complaints and pain well controlled baby status: doing well [place] feeding status: exclusively breast feeding (and pumping) OB - PN: Obj Data Labs CBC & Chem 7: 11/17/21 03:54 Labs: Laboratory Results - last 24 hr 11/16/21 11/16/21 11/16/21 07:16 07:16 08:40 Hgb Hct RPR Non-reactive HIV 1&2 Ab/P24 Ag 4thGn Negative Blood Type O Positive Antibody Screen Negative 11/17/21 03:54 Hgb 10.6 L Hct 32.7 L RPR HIV 1&2 Ab/P24 Ag 4thGn Blood Type Antibody Screen OB - PN A/P Plan day: 1 Plan: routine care Time Spent With Patient Time: Total time spent is greater than 50% in coordination of care (as documented) at patient's floor/unit and/or counseling patient: Review of Systems Review of Systems: All systems reviewed & are unremarkable except as noted in HPI and below Exam Narrative: Alert and oriented. Mood is pleasant and cooperative. Urinating without difficulty. Denies passing any large clots. Perineum with minimal edema. Const: General: no acute distress Orientation/consciousness: patient oriented x3 Limitations: no limitations Resp: Effort & Inspection: normal respiratory effort Auscultation: clear to auscultation bilaterally Cardio: Rate: regular rate GI: Inspection: normal to inspection Neuro: General: patient oriented x3 Extrem: General: normal to inspection Psych: Appearance: grossly normal Mental Status: mental status grossly normal Affect: normal affect Thought process: Normal thought process present
[2021-11-17 08:10] VITALS: BP 115/72; PULSE 89; RESP 18; TEMP 36.9; O2SAT 97
[2021-11-17] MEDS: MULTIVIT/MIN/PREN/FOL AC/IRON TABLET 1 TAB PO (10:09)
[2021-11-17] MEDS: DOCUSATE SODIUM 100 MG CAPSULE PO (10:09)
--- NOTE | 2021-11-17 11:21 | PC.NURSE ---
[id number] Introductions were made, then consulted with patient to assess needs related to . Mother led the conversation with her?plans to feed?her infant,?experience so far, and the history of her girls. Mother states her infant was fine until he took the pacifier and now she is having difficulty latching her infant to the breast. Resources provided for inpatient and outpatient services using a resource guide and mom/baby guide. Mother voiced understanding of information and requested assistance with this feeding. displays either sleepiness or crying. Encouraged understanding of the benefits of skin to skin (unwrapping and placing vertically on her chest), organizing a fussy or disorganized , responsive feeding and how to watch for early feeding signs, frequency of feeding on demand about every 8-12 times in 24 hours (every 2-3 hours), milk production, duration of feeding, signs of adequate intake/output and how to record on the feeding sheet. has large stool in his diaper. RN changed the diaper, infant voided, and demonstrated circumcision care to mother. Reviewed positioning and ear, shoulder, hip alignment, supporting the breast, asymmetrical latch (off-center), and leading with the chin with a big open side gape. Mother latched infant optimally to the left breast in cross cradle position. Education given to mother of how to visualize suck/swallow ratios and listening for drinking at the breast. was able to maintain latch without discomfort to mother. Nipple care reviewed with optimal latch and good positioning. Resources used to facilitate learning were used with the visual handouts, tool, mom and baby guide. Mother voiced understanding of responsive feedings, stimulating with skin to skin, hand expressed colostrum, massage touch, talking to infant to encourage if it has been 2 -3 hours since the start of the last , to call if infant does not latch, there is discomfort with , or needs any assistance. Reported to the primary RN.
[2021-11-17 19:50] VITALS: BP 124/69; PULSE 81; RESP 16; TEMP 36.8
[2021-11-18] MEDS: MULTIVIT/MIN/PREN/FOL AC/IRON TABLET 1 TAB PO (07:48)
[2021-11-18] MEDS: IBUPROFEN 600 MG TABLET PO (07:48)
--- NOTE | 2021-11-18 07:57 | PM.OBPNVD ---
OB - PN: Subj Subjective Date/time seen: 11/18/21 07:35 Patient comments: no complaints and pain well controlled feeding status: exclusively breast feeding OB - PN: Obj Data Labs CBC & Chem 7: 11/17/21 03:54 OB - PN A/P Plan day: 2 Plan: discharge home Time Spent With Patient Time: Total time spent is greater than 50% in coordination of care (as documented) at patient's floor/unit and/or counseling patient: Review of Systems Review of Systems: All systems reviewed & are unremarkable except as noted in HPI and below Exam Narrative: Sitting up in bed. Cheerful affect. Desires discharge home. Const: General: cooperative and healthy appearing Orientation/consciousness: patient oriented x3 Limitations: no limitations Resp: Effort & Inspection: normal respiratory effort Auscultation: clear to auscultation bilaterally Cardio: Rate: regular rate GI: Inspection: normal to inspection Neuro: General: patient oriented x3 Extrem: General: normal to inspection Psych: Appearance: grossly normal Mental Status: mental status grossly normal Affect: normal affect Thought process: Normal thought process present
[2021-11-18 08:17] VITALS: BP 97/68; PULSE 75; RESP 20; TEMP 36.9; O2SAT 98
--- NOTE | 2021-11-18 12:14 | PC.NURSE ---
1145 Patient was given the opportunity to view the discharge video Mother & Baby Care, The First Two Weeks and to ask questions. Patient declined viewing the video and has been given the mother/baby guide for home reference. Pt states she watched with her other babies.
--- NOTE | 2021-11-18 15:12 | PC.NURSE ---
[id number] Mother led the conversation with her experience and plan to feed her so far and her ability to independently latch optimally without discomfort and will pump her breast if and when receives a bottle of formula. Reminded parents to use good handwashing technique to prevent infection. Mother is feeding appropriately for growth of and understands stimulating infant to eat if needed. has had appropriate feedings in the last 24 hours meets the outcomes for weight, output and jaundice at this time. Mother states she is confident to continue effectively breastfeed her infant at home or when to call for assistance and denies any additional assistance or education at this time. Reinforced understanding of milk production, transition of milk, signs of adequate intake, prevention/relief of engorgement, responsive after visualizing feeding cues, the different methods of stimulating infant to breastfeed 2-3 hours after the start of the last feeding, community resources, medication information reviewed per [facility] and when to call a provider using the resource of the mom and baby guide/[facility] website. Mother voiced understanding of the education shared.
[2021-11-20 10:12] VITALS: BP 120/85; PULSE 79; RESP 20; TEMP 37; O2SAT 98
== END 2021-11-18 11:52 | disposition home or self-care (01) | DRG 560 ==
LOC: ANHLDR 07:01 → ANHOB2 12:43
PROVIDERS: Advanced Practice Midwife; Admitting Provider Obstetrics & Gynecology Gynecology; Visit Provider Obstetrics & Gynecology Gynecology
DX: O99.824 Streptococcus B carrier state complicating childbirth (principal); O69.81X0 Labor and delivery complicated by cord around neck, without compression, not applicable or unspecified; Z3A.38 38 weeks gestation of pregnancy; Z37.0 Single live birth
CPT/HCPCS: 36415; 85014; 85018; 85025; 86592; 86703; 86850; 86900; 86901; A9270; G0432; J0290; J2590; J2795; J7120

== ENCOUNTER 2022-01-18 00:29 | Day surgery (SDC) | payer OTHER, SELFPAY ==
[2022-01-13 14:15] VITALS: BMI 34.6
--- NOTE | 2022-01-13 14:20 | PC.NURSE ---
Report to the Outpatient Waiting Room, entrance under the green pavilion located off [facility], at time 0830 on date 01/18/22. Planned Procedure Time: 1030. Time changes happen often and if your time is changed the preop area will call you the afternoon before. - You and your visitor will be asked to self-screen and do not enter if you have any COVID symptoms. - We encourage only one visitor and NO visitors under age 16 are allowed at this time. Your visitor will receive communication by the phone number that is given day of service. - The patient visitor is requested to social distance or may leave the building when not with patient due to restrictions. - A mask is OPTIONAL within the hospital. Patients may have clear liquids (water, carbonated beverages, clear teas, apple juice) until 3 hours prior to surgery with a maximum of 20 ounces. - No food from midnight until time of surgery Take the following medications with a SIP of water the morning of surgery: FLUOXETINE Medications to discontinue per physician: N/A Date to take last dose: N/A Please no make-up, nail latvian, hairspray, perfume, deodorant, or body powder the day of surgery. No jewelry (including any body piercings) or valuables the day of surgery, leave them at home. Please take a shower or bath the night before, or the morning of, surgery with an antibacterial soap. Wear comfortable, loose fitting clothing. - Jewelry must be removed prior to entering the operating room. Rings and piercings that are not removed may be cut off. - The hospital will not accept responsibility for valuables. - Please leave all valuables, including medications, at home the day of surgery. If you are going home after surgery, a licensed warehouse delivery driver must drive you home. - NO public transportation without another adult. - We recommend that an adult stay with you for 24 hours following discharge. - We also recommend that you do not drive, make important decision, drink alcoholic beverages, or take any drugs that were not prescribed by your health care provider for at least 24 hours after your discharge time. Follow any additional instructions given to you from your surgeon. If you or anyone in your household have experienced Covid symptoms in the past week, please notify your surgeon or the nurse liaison at the phone number below for possible testing. Telephone instructions given to PT - TENISHA WARNER and asked if any additional questions and then verbalized understanding. Patient advised to call surgeon office or pre surgery nurse liaison [phone] if any additional questions.
[2022-01-18] VITALS (11 sets, daily range): BP systolic 113–133; BP diastolic 66–89; PULSE 64–80; RESP 13–20; TEMP 36.7–36.9; O2SAT 99–100
--- NOTE | 2022-01-18 09:07 | WPDHPUPDATE1 ---
History and Physical Update Update Date/Time: 01/18/22 09:07 History and Physical has been reviewed, including an updated exam of the patient. There are NO changes in the patient's condition. Risks, benefits, and alternatives have been discussed and questions answered. Patient agrees to proceed with procedure.
--- NOTE | 2022-01-18 09:07 | PM.HPGS ---
History of Present Illness History of Present Illness Consent: Risks, benefits, and alternatives have been discussed and questions answered. Patient agrees to proceed with procedure. Chief complaint: desires sterilization Narrative: Shelby Brink is a 21 year old female 4 para 4 requesting permanent sterilization. Risks of infection, bleeding, perforation and injury to internal organs, tubal failure with increased risk of ectopic were reviewed. The permanent and irreversible nature of tubal ligation was also discussed. Plan is to proceed with laparoscopic bilateral tubal ligation via salpingectomy if possible and cautery if not possible. Patient voices understanding and agrees to proceed. Review of Systems Review of Systems: not repeated day of surgery; patient states no changes in status PMFSH Past Medical History Medical History (Updated 01/18/22 @ 09:10 by Katelyn Bryson MD) Chlamydia 2016 Depression Febrile seizures (normal spontaneous vaginal delivery) X4 Surgical History Surgical History Amputation of finger of right hand Family History Family History (Updated 11/02/21 @ 12:22 by George Norton RN) Grandparent Prostate carcinoma Other Unknown family medical history Social History Social History Smoking status: Never smoker Tobacco type: e-cigarettes/vaping Alcohol intake: current Alcohol use details: RARE Substance use: never Substance use type: does not use Living arrangements: with family Gender identity (if verbalized by the patient): Female Spiritual care concerns: No Meds Home Medications and Allergies Home Medications Medication Instructions Recorded Confirmed Type ibuprofen 600 mg tablet 600 mg PO Q6H PRN Cramping 30 days 11/18/21 01/13/22 Rx #45 tabs norethindrone (contraceptive) 0.35 0.35 mg PO DAILY #84 tabs 11/18/21 01/13/22 Rx mg tablet ([facility]) diphenhydramine HCl 25 mg capsule 25 mg PO BID PRN Rash 01/13/22 01/13/22 History (Benadryl) fluoxetine 10 mg tablet 10 mg PO DAILY 01/13/22 01/13/22 History Allergies Allergy/AdvReac Type Severity Reaction Status Date / Time Sulfa (Sulfonamide Allergy Mild HIVES Verified 01/13/22 14:13 Antibiotics) Exam Const: General: healthy appearing and alert Orientation/consciousness: patient oriented x3 Resp: Effort & Inspection: normal respiratory effort GI: GI Palp: Yes Soft to palpation, No Tenderness to palpation present (GI) and No Palpable mass present : External Female Exam: normal external appearance Speculum Exam - Vagina: normal appearance of the vagina and normal vaginal discharge Speculum Exam - Cervix: normal appearance of the cervix Bimanual exam- vagina & uterus: uterine size normal and consistency normal Bimanual Exam- Adnexa, other: normal adnexae and No adnexal tenderness Neuro: General: patient oriented x3 Assessment and Plan Assessment and plan (1) Encounter for sterilization: Code(s): Z30.2 - Encounter for sterilization Status: Acute Assessment and Plan: plan to proceed with laparoscopic bilateral salpingectomy for sterilization
[2022-01-18] MEDS: LACTATED RINGERS 1,000 ML 30 ML IV CONT ×2 (11:30→14:19)
[2022-01-18] MEDS: ACETAMINOPHEN 500 MG TABLET 1000 MG PO (11:36)
[2022-01-18] MEDS: KETOROLAC 15 MG/ML VIAL (*BKC) IV PUSH (11:36)
--- NOTE | 2022-01-18 11:47 | P.PNAN_ITS ---
Anes - Initial Pre Proc Eval Procedure: Operation Date: 01/18/22 13:00 Proposed Procedures p Bilateral Laparoscopic Tubal Ligation with Fallopian Rings - Katelyn Bryson MD Date/Time: 01/18/22 11:47 Surgeon: Katelyn Bryson MD Pre Op Diagnosis: desires sterilization Patient Data Age: 21 Gender: F Height: 1.64 m Weight: 93 kg Allergies Allergy/AdvReac Type Severity Reaction Status Date / Time Sulfa (Sulfonamide Allergy Mild HIVES Verified 01/13/22 14:13 Antibiotics) Home Medications Medication Instructions Recorded Confirmed Type ibuprofen 600 mg tablet 600 mg PO Q6H PRN Cramping 30 days 11/18/21 01/13/22 Rx #45 tabs norethindrone (contraceptive) 0.35 0.35 mg PO DAILY #84 tabs 11/18/21 01/13/22 Rx mg tablet ([facility]) diphenhydramine HCl 25 mg capsule 25 mg PO BID PRN Rash 01/13/22 01/13/22 History (Benadryl) fluoxetine 10 mg tablet 10 mg PO DAILY 01/13/22 01/13/22 History Patient hx anesthesia problems: none Family hx anesthesia problems: none Results Review: All pre-operative results and documents have been reviewed as part of the pre- operative evaluation. [facility] Past Medical History Medical History (Updated 01/18/22 @ 09:10 by Katelyn Bryson MD) Chlamydia 2016 Depression Febrile seizures (normal spontaneous vaginal delivery) X4 Surgical History Surgical History Amputation of finger of right hand Family History Family History (Updated 11/02/21 @ 12:22 by George Norton RN) Grandparent Prostate carcinoma Other Unknown family medical history Social History Social History Smoking status: Never smoker Tobacco type: e-cigarettes/vaping Alcohol intake: current Alcohol use details: RARE Substance use: never Substance use type: does not use Living arrangements: with family Gender identity (if verbalized by the patient): Female Spiritual care concerns: No Anes - Eval Final PreProcedure Day of Procedure 01/18/22 11:47 Patient weight: obese Heart: regular rate and rhythm Lungs: clear to auscultation Airway: Mallampati scale class II Neurological: alert and oriented Last oral intake: >/= 8 hours ASA classification: II Emergent: no Anesthetic plan: proceed Anesthesia type and monitoring: general ETT and standard monitoring Results Review: All pre-operative results and documents have been reviewed as part of the pre- operative evaluation. Informed Consent: The patient's anesthetic plan and its attendant risks and benefits were discussed with the patient/family/POA. Questions were solicited and answers provided to the satisfaction of the patient/family/POA.
--- NOTE | 2022-01-18 13:40 | W.PM.PROC2 ---
Procedure Note - Detailed Date of Procedure 01/18/22 Pre-op Diagnosis desires sterilization Post-op Diagnosis Same Procedure Performed laparoscopic bilateral tubal ligation with Falope rings Surgeon Katelyn Brysno MD Anesthesia General Indications I was originally told we had no further ring applicator kits. My original H&P dictated the removal of tubes with LigaSure however due to the original plan being ring tubal ligation we proceeded with the ring tubal ligation. Findings normal-appearing tubes, ovaries, and uterus Description of Procedure the patient is taken to the operating room and placed under anesthesia in dorsal lithotomy position. She was prepped and draped in usual sterile fashion. The bladder was drained with a red rubber catheter. [place] speculum was placed in the vagina and cervix grasped on the anterior lip with a tenaculum. The acorn manipulator was placed. Attention was turned to the abdomen where a vertical skin incision was made at the base of the umbilicus. The abdomen is tented and the Veress needle placed . The water drop test is normal and opening patient pressure is 7mmHg. Pneumoperitoneum was obtained to a patient pressure of 15mmHg. The Veress needle was removed and the 5mm trocar placed while tenting the abdomen with towel clamps. The patient is placed in Trendelenburg and an 8mm skin incision made 2cm above the symphysis pubis the midline. The ring applicator is used to grasp the right tube and a good loop of tube is applied. Upon setting the ring applicator to the 2nd setting the 2nd ring deployed automatically outside of the body. A 2nd set of rings was opened and placed on the applicator. The left tube is grasped with the ring applicator and a good loop of tube brought up into the applicator and the ring was applied. All instruments were removed and the pneumoperitoneum was reduced. Skin incisions were closed using 4-0 nylon in an interrupted fashion. The sponge, needle, and instrument counts are correct per the OR staff. Estimated Blood Loss 5 Drains No Packing No Pathology None sent Complications No immediate complications Condition Stable Disposition PACU
[2022-01-18] MEDS: fentaNYL CITRATE INJ (*CRX) 100 MCG/2 ML VIAL 25 MCG IV PUSH ×10 (14:04→15:33)
[2022-01-18] MEDS: HYDROmorphone HCL INJ (*CRX) 1 MG/ML SYR 0.5 MG IV PUSH ×4 (15:01→15:28)
[2022-01-18] MEDS: oxyCODONE HCL (*CRX) 5 MG TAB IR PO (15:56)
== END 2022-01-18 16:40 | disposition home or self-care (01) ==
PROVIDERS: Visit Provider Obstetrics & Gynecology Gynecology
PROC: (CPT 58671; principal; 2022-01-18 13:00)
DX: Z30.2 Encounter for sterilization (principal); F32.A Depression, unspecified; F17.290 Nicotine dependence, other tobacco product, uncomplicated; E66.9 Obesity, unspecified; Z68.34 Body mass index [BMI] 34.0-34.9, adult
CPT/HCPCS: 58671; A4264; A9270; J0330; J1100; J1170; J1885; J2250; J2405; J2704; J3010; J7030; J7120

== ENCOUNTER 2022-05-01 09:19 | Emergency (ER) | payer OTHER, SELFPAY ==
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
[2022-05-01 09:22] VITALS: BP 131/87; PULSE 90; RESP 20; TEMP 36.6; O2SAT 100
--- NOTE | 2022-05-01 09:31 | PC.NURSE ---
Demetrius SIMPSON activated
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
[2022-05-01 10:37] LABS: Basophils Absolute Auto 0.1 K/mm3 (0.0-0.1); Basophils Percent Auto 0.4 % (0.2-1.2); Eosinophils Percent Auto 0.1 % (0-4.4); Hematocrit 43.2 % (37.0-47.0); Hemoglobin 14.5 g/dL (12.0-15.0); Immature Granulocyte Absolute 0.03 K/mm3 (0.00-0.031); Immature Granulocyte Percent A 0.2 % (0-0.5); Lymphocytes Percent Auto 18.8 % (18.3-44.2); Mean Corpuscular HGB Conc 33.6 g/dl (32-36); Mean Corpuscular Hemoglobin 30.9 pg (26-34); Mean Corpuscular Volume 92.1 fl (80-100); Mean Platelet Volume 9.6 fl (7.4-10.4); Monocytes Absolute Auto 0.5 K/mm3 (0.1-0.6); Monocytes Percent Auto 3.9 % (2.6-8.5); Neutrophils Absolute Auto 9.3 K/mm3 (1.3-6.7); Neutrophils Percent Auto 76.6 % (45.5-73.1); Platelet Count Result 329 k/mm3 (150-375); Red Blood Count 4.69 M/mm3 (4.2-5.4); Red Cell Distribution Width 12.4 % (11.5-14.5); White Blood Count 12.2 K/mm3 (4.5-10.0)
[2022-05-01 10:40] LABS: Estimated CRCL calculation 93 ml/min; Estimated Glomerular Filt Rate > 60
[2022-05-01 10:46] LABS: Ethanol 172 mg/dL (<10)
[2022-05-01 10:48] LABS: Alanine Aminotransferase 19 U/L (6-35); Albumin Level 4.9 g/dL (3.5-5.1); Alkaline Phosphatase 81 U/L (38-126); Anion Gap 10 mmol/L (8-16); Aspartate Amino Transferase 27 U/L (14-36); Bilirubin,Total 0.4 mg/dL (0.2-1.3); Blood Urea Nitrogen 6 mg/dL (7-17); Calcium 8.6 mg/dL (8.4-10.2); Carbon Dioxide 25 mmol/L (22-30); Chloride 107 mmol/L (98-107); Estimated CRCL calculation 135 ml/min; Estimated Glomerular Filt Rate > 60; Glucose 98 mg/dL (65-110); Lipase 45 U/L (23-300); Potassium 3.9 mmol/L (3.4-5.0); Sodium 142 mmol/L (137-145)
[2022-05-01 12:07] LABS: INR 1.1; Prothrombin Time 13.7 Seconds (11.1-14.7)
[2022-05-01 12:08] LABS: Partial Thromboplastin Time 29.7 SECONDS (22.3-36.8)
[2022-05-01] MEDS: DOXYCYCLINE HYCLATE 100 MG TABLET PO (16:06)
[2022-05-01] MEDS: ONDANSETRON INJ 4 MG/2 ML VIAL IV PUSH (16:07)
[2022-05-01] MEDS: metroNIDAZOLE 250 MG TABLET 500 MG PO (16:07)
[2022-05-01] MEDS: cefTRIAXone 1 GM VIAL 0.5 GM IM (16:08)
[2022-05-01 16:18] VITALS: BP 120/66; PULSE 84; RESP 18; O2SAT 100
[2022-05-01 17:46] LABS: HIV 1/2 Ab P24 Ag Result Negative (Negative)
== END 2022-05-01 17:30 | disposition home or self-care (01) ==
PROVIDERS: Emergency Provider Emergency Medicine
DX: T74.21XA Adult sexual abuse, confirmed, initial encounter (principal); S80.12XA Contusion of left lower leg, initial encounter; S80.11XA Contusion of right lower leg, initial encounter; S10.93XA Contusion of unspecified part of neck, initial encounter; S06.9X9A Unspecified intracranial injury with loss of consciousness of unspecified duration, initial encounter; F32.A Depression, unspecified; Z89.021 Acquired absence of right finger(s); Y04.2XXA Assault by strike against or bumped into by another person, initial encounter; Y04.8XXA Assault by other bodily force, initial encounter; Y07.59 Other non-family member, perpetrator of maltreatment and neglect
CPT/HCPCS: 36415; 70496; 70498; 80053; 80307; 81025; 83690; 85025; 85610; 85730; 86703; 87070; 87077; 87491; 87591; 87808; 96365; 96372; 96375; 99285; A9270; G0432; J0131; J0696; J2405; Q9967

== ENCOUNTER 2022-09-27 20:17 | Emergency (ER) | payer OTHER, SELFPAY ==
--- NOTE | ~2022-09-27 | CT_ITS ---
Non-contrast CT scan of the Abdomen and Pelvis Clinical indication: Abdominal pain Technique: 2.5 mm axial scans were obtained through the abdomen and pelvis without intravenous or or al contrast. Dose reduction technique was used on this scan by utilizing automated exposure control a nd iterative reconstruction technique. The dose-length product (DLP) was 609.86 mGy-cm. Findings: Images through the lung bases reveal no abnormalities. There is no evidence of renal or ureteral calculi. The kidneys and the ureters are nondilated. The liver, spleen, pancreas, gallbladder, and adrenals appear normal. There is no aortic aneurysm. There is no evidence of bowel obstruction. Normal appendix Images through the pelvis were performed. There is no evidence of ascites or lymphadenopathy. Questio nable mild urinary bladder wall thickening. No definite adnexal mass seen. No ascites. Impression: Questionable mild urinary bladder wall thickening. Correlate for cystitis. No other significant findings. Reviewed, dictated and finalized at [facility]. Impression: Questionable mild urinary bladder wall thickening. Correlate for cystitis. No other significant findings.
[2022-09-27 20:22] VITALS: BP 115/75; PULSE 73; RESP 18; TEMP 36.5; O2SAT 100
[2022-09-27 20:38] LABS: Basophils Absolute Auto 0.1 K/mm3 (0.0-0.1); Basophils Percent Auto 0.5 % (0.2-1.2); Eosinophils Absolute Auto 0.2 K/mm3 (0-0.3); Eosinophils Percent Auto 1.2 % (0-4.4); Hematocrit 38.6 % (37.0-47.0); Hemoglobin 12.7 g/dL (12.0-15.0); Immature Granulocyte Absolute 0.04 K/mm3 (0.00-0.031); Immature Granulocyte Percent A 0.3 % (0-0.5); Mean Corpuscular HGB Conc 32.9 g/dl (32-36); Mean Corpuscular Hemoglobin 30.2 pg (26-34); Mean Corpuscular Volume 91.9 fl (80-100); Mean Platelet Volume 9.9 fl (7.4-10.4); Monocytes Absolute Auto 0.6 K/mm3 (0.1-0.6); Monocytes Percent Auto 4.8 % (2.6-8.5); Neutrophils Absolute Auto 8.9 K/mm3 (1.3-6.7); Neutrophils Percent Auto 69.2 % (45.5-73.1); Platelet Count Result 233 k/mm3 (150-375); Red Cell Distribution Width 12.7 % (11.5-14.5); White Blood Count 12.9 K/mm3 (4.5-10.0)
[2022-09-27 20:45] LABS: Bacteria Urine Rare /hpf; Need Manual Microscopic Reviewed; Non Pathogenic Casts 0-2; RBC Urine >100 /hpf (0-2); Squamous Epithelial Cell Urine Few /hpf (Few); WBC Urine >100 /hpf
[2022-09-27 20:49] LABS: Appearance Urine Cloudy (Clear); Bilirubin Urine Negative (Negative); Blood Urine 3+ (Negative); Color Urine Orange (Yellow); Glucose Urine UA Trace mg/dL (Negative); Ketones Urine Trace mg/dL (Negative); Leukocyte Esterase Ur 3+ LEU/UL (Negative); Nitrate Urine Positive (Negative); Protein Urine 3+ mg/dL (Negative); Specific Grav Ur 1.025 (1.001-1.035)
[2022-09-27 20:54] LABS: Add Urine Microscopic? YES
[2022-09-27 20:57] LABS: Alanine Aminotransferase 16 U/L (6-35); Albumin Level 4.5 g/dL (3.5-5.1); Alkaline Phosphatase 70 U/L (38-126); Anion Gap 9 mmol/L (8-16); Aspartate Amino Transferase 21 U/L (14-36); Bilirubin,Total 0.6 mg/dL (0.2-1.3); Blood Urea Nitrogen 10 mg/dL (7-17); Calcium 8.8 mg/dL (8.4-10.2); Carbon Dioxide 25 mmol/L (22-30); Chloride 101 mmol/L (98-107); Estimated CRCL calculation 101 ml/min; Estimated Glomerular Filt Rate > 60; Glucose 92 mg/dL (65-110); Lipase 54 U/L (23-300); Potassium 3.7 mmol/L (3.4-5.0); Sodium 135 mmol/L (137-145)
--- NOTE | 2022-09-27 20:57 | ED.FEMALEGU ---
HPI - Female Genitourinary General Chief complaint: Urogenital-Female Stated complaint: I think I'm passing a kidney stone Time Seen by Provider: 09/27/22 20:45 Source: patient Mode of arrival: ambulatory Limitations: no limitations History of Present Illness HPI Narrative: Patient is a 21 y/o female who presents to the ED with c/o urinary symptoms. Patient reports she developed dysuria, urinary frequency, and urinary urgency today. She denied having any sx's yesterday. She developed hematuria this evening and became concerned she may be passing a kidney stone. She denies Hx of previous kidney stones. She does report having lower abdominal and lower back pain, in addition to N/V today. She still feels nauseous currently. Denies any fevers today. Denies constipation. Related Data Home Medications Medication Instructions Recorded Confirmed diphenhydramine HCl 25 mg capsule 25 mg PO BID PRN Rash 01/13/22 01/18/22 (Benadryl) fluoxetine 10 mg tablet 10 mg PO DAILY 01/13/22 01/18/22 Allergies Allergy/AdvReac Type Severity Reaction Status Date / Time Sulfa (Sulfonamide Allergy Mild HIVES Verified 09/27/22 20:17 Antibiotics) Review of Systems Review of Systems: CONSTITUTIONAL: Denies fever, chills, or sweats. CARDIOVASCULAR: Denies chest pain. RESPIRATORY: Denies dyspnea. GASTROINTESTINAL: See HPI. GENITOURINARY: See HPI. SKIN: Denies rash or itching. MUSCULOSKELETAL: See HPI. All systems reviewed & are unremarkable except as noted in HPI and below PMFSH Past Medical History Medical History Chlamydia 2016 Depression Febrile seizures (normal spontaneous vaginal delivery) X4 Surgical History Surgical History Amputation of finger of right hand History of tubal ligation Family History Family History (Updated 11/02/21 @ 12:22 by George Norton RN) Grandparent Prostate carcinoma Other Unknown family medical history Social History Social History Smoking status: Never smoker Tobacco type: e-cigarettes/vaping Alcohol intake: current Alcohol use details: RARE Substance use: never Substance use type: does not use Living arrangements: with family Gender identity (if verbalized by the patient): Female Sexual Orientation (if Verbalized by the Patient): Straight or Heterosexual Spiritual care concerns: No Exam Narrative: GENERAL: Well appearing, obese with BMI of 32.2, non-toxic, in no acute distress. HEAD: Normocephalic, atraumatic. NECK: Supple. No adenopathy, no masses. RESPIRATORY: Airway patent, respirations nonlabored. Clear to auscultation bilaterally, no rales, rhonchi, wheezing. CARDIOVASCULAR: Regular rate and rhythm without murmurs, rubs, or gallops. Radial pulses 2+ and equal bilaterally. ABDOMINAL: Soft, minimal tenderness in suprapubic region, nondistended, no hepatosplenomegaly. Normoactive BS. No significant CVA tenderness to percussion. MUSCULOSKELETAL: Moves all extremities. Strength/ROM intact without gross deformities. No significant lumbosacral tenderness to palpation. SKIN: Warm, dry, normal color. No rashes. NEURO: A&O X3. Speech clear. Cranial nerves II-XII grossly intact. Steady gait. No ataxic movements. PSYCHIATRIC: Appropriate mood and affect. Normal interaction. Course Vital Signs Vital signs: Vital Signs Temperature 97.7 F 09/27/22 20:22 Pulse Rate 73 09/27/22 20:22 Respiratory Rate 18 09/27/22 20:22 Blood Pressure 115/75 09/27/22 20:22 Pulse Oximetry 100 09/27/22 20:22 Oxygen Delivery Room Air 09/27/22 20:22 Temperature 97.7 F 09/27/22 20:22 Pulse Rate 73 09/27/22 20:22 Respiratory Rate 18 09/27/22 20:22 Blood Pressure 115/75 09/27/22 20:22 Pulse Oximetry 100 09/27/22 20:22 Oxygen Delivery Room Air 09/27/22
[2022-09-27] MEDS: ACETAMINOPHEN 500 MG TABLET 1000 MG PO (21:40)
[2022-09-27] MEDS: SODIUM CHLORIDE 0.9% IV 1,000 ML 999 ML IV CONT (21:40)
[2022-09-27] MEDS: ONDANSETRON INJ 4 MG/2 ML VIAL IV PUSH (21:40)
[2022-09-27 21:51] LABS: Lactic Acid Reflex 0.8 mmol/L (0.7-2.0)
[2022-09-27 22:50] VITALS: BP 112/72; PULSE 70; RESP 16; O2SAT 99
== END 2022-09-27 22:51 | disposition home or self-care (01) ==
PROVIDERS: Preventive Medicine Aerospace Medicine; Emergency Provider Physician Assistant
DX: N30.01 Acute cystitis with hematuria (principal); R11.2 Nausea with vomiting, unspecified; F32.A Depression, unspecified
CPT/HCPCS: 36415; 74176; 80053; 81001; 83605; 83690; 85025; 87077; 87086; 87186; 96361; 96365; 96375; 99284; A9270; J0696; J2405; J7030

== ENCOUNTER 2023-02-16 09:31 | Emergency (ER) | payer OTHER, SELFPAY ==
[2023-02-16 09:46] VITALS: BP 116/75; PULSE 80; RESP 16; TEMP 36.7; O2SAT 100
--- NOTE | 2023-02-18 15:25 | ED.URI ---
HPI - URI/Sore Throat General Chief Complaint: Upper Respiratory Infection Stated Complaint: Sore Throat Time Seen by Provider: 02/16/23 10:00 Source: patient Mode of arrival: ambulatory Limitations: no limitations History of Present Illness HPI Narrative: 22-year-old female presents with complaint of cough, congestion, postnasal drainage, sinus headaches, sore throat for over a week. Patient reports approximately 8 days. Sore throat, fatigue, congestion getting progressively worse. No chest pain or shortness of breath. Afebrile. Not taking any [id number] medications to treat her symptoms. All systems reviewed and negative except as noted above. Related Data Home Medications Medication Instructions Recorded Confirmed escitalopram oxalate 20 mg tablet 20 mg PO DAILY 02/16/23 02/16/23 Allergies Allergy/AdvReac Type Severity Reaction Status Date / Time Sulfa (Sulfonamide Allergy Mild HIVES Verified 02/16/23 09:59 Antibiotics) Review of Systems Review of Systems: CONSTITUTIONAL: Denies fever, chills, or sweats. reports fatigue. EYES: Denies visual changes, redness, or discharge. ENT: Reports rhinorrhea, congestion, sore throat. Denies otalgia. CARDIOVASCULAR: Denies chest pain, palpitations, or edema. RESPIRATORY: Reports cough. Denies dyspnea. GASTROINTESTINAL: Denies abdominal pain, nausea, vomiting, or diarrhea. GENITOURINARY: Denies dysuria or hematuria. SKIN: Denies rash or itching. MUSCULOSKELETAL: Denies back pain, joint pain, or myalgia. NEUROLOGIC: Denies headache, numbness, or weakness. PSYCHIATRIC: Denies anxiety or depression. All other systems reviewed are negative, except as documented in HPI. [facility] Past Medical History Medical History Chlamydia 2016 Depression Febrile seizures (normal spontaneous vaginal delivery) X4 Surgical History Surgical History Amputation of finger of right hand History of tubal ligation Family History Family History (Updated 11/02/21 @ 12:22 by George Norton RN) Grandparent Prostate carcinoma Other Unknown family medical history Social History Social History Smoking status: Never smoker Tobacco type: e-cigarettes/vaping Alcohol intake: current Alcohol use details: RARE Substance use: never Substance use type: does not use Living arrangements: with family Gender identity (if verbalized by the patient): Female Sexual Orientation (if Verbalized by the Patient): Straight or Heterosexual Spiritual care concerns: No Comments At time of signature, agree with nursing past medical, surgical, social and family history. There is no relevant family history pertinent to the presenting complaint. Exam Narrative: GENERAL: This is a well-nourished, well-developed patient, in no apparent distress. HEAD: normocephalic, atraumatic. EYES: PERRL. Sclera clear/white. Vision is grossly intact. EARS: External ears normal, auditory canals clear and without drainage, fluid bilateral TMs without erythema without perforation. Hearing grossly intact. NOSE: External nose normal with purulent nasal drainage, moderate congestion, erythema and swelling to bilateral nares. THROAT: Mucous membranes moist, Erythema with postnasal drainage. NECK: Neck supple, non-tender without lymphadenopathy, masses or thyromegaly. CARDIOVASCULAR: Regular rate and rhythm without murmurs, gallops, or rubs. RESPIRATORY: Clear to auscultation. Breath sounds equal bilaterally. No wheezes, rales, or rhonchi. SKIN: warm, Dry, intact with no suspicious lesions or rash, good texture and turgor. NEURO: awake, alert, and oriented to person, place and time. There were no obvious focal neurologic abnormalities. EXTREMITIES: No joint tenderness, effusion, or edema noted.
== END 2023-02-16 10:20 | disposition home or self-care (01) ==
PROVIDERS: Emergency Provider Nurse Practitioner Family
DX: J01.90 Acute sinusitis, unspecified (principal); F17.290 Nicotine dependence, other tobacco product, uncomplicated; F32.A Depression, unspecified
CPT/HCPCS: 87081; 87147; 87880; 99213; G0463

== ENCOUNTER 2024-04-10 14:37 | Emergency (ER) | payer OTHER, SELFPAY ==
[2024-04-10 14:50] VITALS: BP 114/71; PULSE 92; RESP 16; TEMP 36.5; O2SAT 99
--- NOTE | 2024-04-10 15:32 | ED.URI ---
HPI - URI/Sore Throat General Chief Complaint: Upper Respiratory Infection Stated Complaint: flu A on Sun. cough, rattle in chest Time Seen by Provider: 04/10/24 15:32 Source: patient and RN notes reviewed Mode of arrival: ambulatory Limitations: no limitations History of Present Illness HPI Narrative: 23-year-old female presents concern for cough, rattle in her chest, shortness of breath. She reports she was diagnosed with influenza 3 days ago. She has been sick a total of 5 days. Reports he has been taking Benadryl Mucinex. MD elicited complaint: cough Related Data Home Medications ?Medication ?Instructions ?Recorded ?Confirmed ?Last Taken ?Type escitalopram oxalate 20 mg tablet 20 mg PO DAILY 02/16/23 04/10/24 Unknown History Allergies Allergy/AdvReac Type Severity Reaction Status Date / Time Sulfa (Sulfonamide Allergy Mild HIVES Verified 04/10/24 14:42 Antibiotics) Review of Systems Review of Systems: CONSTITUTIONAL: Denies malaise, chills, sweats, or fever. EYES: Denies visual changes, redness, or discharge. ENT: Reports rhinorrhea, congestion CARDIOVASCULAR: Denies chest pain, palpitations, or edema. RESPIRATORY: Reports cough, chest congestion, dyspnea. GASTROINTESTINAL: Denies abdominal pain, nausea, vomiting, diarrhea SKIN: Denies rash or itching. MUSCULOSKELETAL: Denies myalgia. NEUROLOGIC: Denies headache. All systems reviewed & are unremarkable except as noted in HPI and below PMFSH Past Medical History Medical History (normal spontaneous vaginal delivery) X4 Depression Chlamydia 2016 Febrile seizures Surgical History Surgical History History of tubal ligation Amputation of finger of right hand Family History Family History Grandparent Prostate carcinoma Other Unknown family medical history Social History Social History Smoking status: Never smoker Tobacco type: e-cigarettes/vaping Alcohol intake: current Alcohol use details: RARE Substance use: never Substance use type: does not use Living arrangements: with family Gender identity (if verbalized by the patient): Female Sexual Orientation (if Verbalized by the Patient): Straight or Heterosexual Spiritual care concerns: No Comments At time of signature, agree with nursing past medical, surgical, social and family history. There is no relevant family history pertinent to the presenting complaint Exam Narrative: GENERAL: Well-appearing, well-nourished, and in no acute distress. HEAD: Normocephalic EYES: PERRLA, conjunctivae clear ENT: Nares clear, turbinates edematous and erythematous, clear discharge. Mucous membranes moist. TM pearly krishnamurthy with dull light reflex bilaterally; no tragal tenderness. Oropharynx not erythematous without lesions. Tonsils not enlarged and without exudate, no drooling, no hoarseness, no trismus, uvula midline. NECK: Supple. No lymphadenopathy CHEST: Scattered expiratory wheeze, breath sounds equal. No rhonchi, rales, or stridor. No respiratory distress, speaks in full sentences. HEART: Regular rate and rhythm. No murmur heard. SKIN: Warm, dry, no rash. NEURO: Alert and oriented x3. PSYCH: Normal mood and affect Course Course Emergency Course: Patient is aware of diagnosis, understands and agrees to treatment plan. Anticipatory guidance given. Patient agrees to follow-up as directed and is aware of reasons to seek care at the emergency department. Portions of this record may have been created with voice recognition software Level of Care: Express Care Visit Vital Signs Vital signs: Vital Signs Temperature 97.7 F 04/10/24 14:50 Pulse Rate 92 04/10/24 14:50 Respiratory Rate 16 04/10/24 14:50 Blood Pressure 114/71 04/10/24 14:50 Pulse Oximetry 99 04/10/24 14:50 Oxygen Delivery Room Air 04/10/24 14:50 Temperature 97.7 F 04/10/24 14:50 Pulse Rate 92 04/10/24 14:50 Respiratory Rate 16 04/10/24 14:50 Blood Pressure 114/71 04/10/24 14:50 Pulse Oximetry 99 04/10/24 14:50 Oxygen Delivery Room Air 04/10/24 14:50 Reviewed. MDM - URI/Sore Throat MDM Narrative Medical decision making narrative: Differential diagnosis considered: Murillo virus, strep pharyngitis, allergic rhinitis, upper respiratory tract infection, sinusitis, rhinosinusitis, nasopharyngitis. viral pharyngitis, otitis media, otitis externa, pneumonia, bronchitis, viral cough syndrome, viral syndrome, and influenza. Exam findings show no acute concerns or changes; patient is non-toxic appearing and is in no distress. Patient is appropriate for outpatient treatment and follow-up. Lab Data Attestation: I reviewed the patient's lab results. Critical Care Time Critical Care Time Critical Care Time: No Discharge Plan Discharge Clinical Impression: Bronchitis Patient Disposition: Home, Self-Care Condition: Stable Instructions: How to Use a Metered-Dose Inhaler (ED) Additional Instructions: Viral illness may last between 7-21 days; antibiotics do not cure viral illness and are NOT recommended at this time. Recommend antihistamine such as Benadryl at night time and Zyrtec or Sonia during the day Use inhaler as needed for cough, wheezing, shortness of breath or chest tightness. Also, recommend symptomatic treatment includes: rest, fluids, and increase humidity of the air at home. Recommend Acetaminophen as directed on the bottle to reduce fever, pain, headache. Avoid smoking/second-hand smoke. Please schedule a follow-up visit with your personal physician for further evaluation and treatment within 3-5days. If your symptoms persist, change or worsen significantly before you can contact your personal physician then please, without delay, go to the emergency department for further evaluation. Patient Language: Gabonese Prescriptions: New albuterol sulfate 90 mcg/actuation HFA aerosol inhaler 2 puff INHALATION QID PRN (Reason: shortness of breath or wheezing) Qty: 8.5 0RF methylprednisolone [Medrol (Evans)] 4 mg tablets,dose pack See Rx Instructions .ROUTE .COMPLEX Qty: 21 0RF Rx Instructions: orally per package directions No Action escitalopram oxalate 20 mg tablet 20 mg PO DAILY Follow-up/Referrals: PHYSICIAN,BRAKE REPAIR SUPERVISOR [Primary Care Provider] - Time of Disposition: 15:38
== END 2024-04-10 15:43 | disposition home or self-care (01) ==
PROVIDERS: Emergency Provider Nurse Practitioner
DX: J40 Bronchitis, not specified as acute or chronic (principal); F32.A Depression, unspecified
CPT/HCPCS: 99213; G0463

== ENCOUNTER 2024-11-23 10:30 | Outpatient (CLI) | payer OTHER, SELFPAY ==
--- NOTE | ~2024-11-23 | US_ITS ---
EXAMINATION: US pelvic complete w TV INDICATION: Pelvic and perineal pain Comparison:11/02/2021 TECHNIQUE: Multiple transabdominal and endovaginal sonographic images of the pelvis performed. FINDINGS: The uterus measures 9 x 4.9 x 6.3 cm. The endometrial complex measures 7. The right ovary measures 3.6 x 1.9 x 2.3 cm and the left ovary measures 3.1 x 1.8 x 2 cm. There are small follicles in each ovary. Normal doppler signal in both ovaries. There is no free fluid in the pelvis. There are no abnormal masses seen on either side. IMPRESSION: 1. Unremarkable pelvic ultrasound. Reviewed, dictated and finalized at location O.
--- OUTSIDE RECORDS SUMMARY | 2024-11-23 10:33 | XMS_ITS | Clinical Summary ---
Author Organization [facility] Virtual Care Address [address] [place] [phone] Phone Care Team Providers Care Search Engine Optimization Manager Name Role Phone Unknown, Notinfile Primary Care Provider Unavail able Allergies Active Allergy Reactions Criticality Noted Date Comments Sulfa (Sulfonamide Antibiotics) Hives Medium 12/05 Medications naproxen (NAPROSYN) 500 mg tablet Take 1 tablet (500 mg total) by mouth 2 (two) times a day with meals 30 tablet 12/16/2023 Active Social History Tobacco Use Types Packs/Day Years Used Date Smoking Tobacco: Never Assessed Personal Safety Answer Date Recorded Have you ever been in or are you currently in a harmful physical or emotional relationship or is someone making you feel afraid or unsafe? 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 Gender Identity Not on file Sexual Orientation Not on file Last Filed Vital Signs Vital Sign Reading Time Taken Comments Blood Pressure 138/91 12/16/2023 8:47 PM CDT Pulse 65 12/16/2023 8:47 PM CDT Temperature 36.6 C (97.8 F) 12/16/2023 8:47 PM CDT Respiratory Rate 16 12/16/2023 8:47 PM CDT Oxygen Saturation 99% 12/16/2023 8:47 PM CDT Inhaled Oxygen Concentration - - Weight 102.5 kg (225 lb 15.5 oz) 12/16/2023 8:47 PM CDT Height 162.6 cm (5' 4) 12/16/2023 8:47 PM CDT Body Mass Index 38.79 12/16/2023 8:47 PM CDT Plan of Treatment Health Maintenance Due Date Last Done Comments Cervical Cancer Screening 1999 Depression Screening 1999 Hepatitis C Screening 1999 Varicella Vaccines (1 of 2 - 13+ 2-dose series) 11/22/2012 HPV Vaccines (1 - 3-dose series) 11/22/2014 Regular Well Visit/Exam 18-64 11/22/2017 Covid-19 Vaccine (3 - season) 2024 10/21/2020, 09/16/2020 Influenza Vaccine (#1) 2024 06/04/2020 DTaP/Tdap/Td Vaccine (6 - Td or Tdap) 12/05/2028 12/05/2018, 11/04/2016, 06/06/2000, Additional history exists Hepatitis B Screening Completed 06/06/2000 , 04/04/2000, 01/25/2000, Additional history exists Pneumococcal vaccine <65 Aged Out No longer eligible based on patient's age to complete this topic Insurance [facility] Care Teams Search Engine Optimization Manager Relationship Specialty Start Date End Date Unknown, Notinfile PCP - General 12/16/23
--- OUTSIDE RECORDS SUMMARY | 2024-11-23 10:33 | XMS_ITS | Clinical Summary ---
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
--- OUTSIDE RECORDS SUMMARY | 2024-11-23 10:33 | XMS_ITS | Clinical Summary ---
Author Organization [facility] Address [address] [place] [address] Care Team Providers Care Sustainable Design Coordinator Name Role Phone Unavailable Primary Care Provider Unavailabl e Source Comments [facility],non-owned Affiliates and Associated Physician Practices is amultiple site organization consisting of ambulatory clinics and hospital sitesin [place], [place], [place] and [place]. This disclosure is being madepursuant to the Care Everywhere program and may not contain all information available regarding this patient. Last updated 17.[facility] [place] Allergies Active Allergy Reactions Criticality Noted Date Comments Sulfa Drugs Other 09/05/2019 Unknown Medications * Be aware that medications may not be up to date on this document. Alwaysverify current medications with the patient. Vit-Fe Fumarate-FA ( VITAMIN) 28-0.8 MG tabletIndication s: Take 1 tablet by mouth once daily Reasons: Active escitalopram (Lexapro) 20 MG tablet Take 1 (one) tablet by mouth once daily 4 Active clindamycin (Cleocin) 1 % lotionIndication s:Hidradenitis suppurativa Apply to affected areas on groin daily. 30 day supply. 60 mL 2 4 Active ketoconazole (Nizoral) 2 % creamIndications :Tinea versicolor Apply to affected areas twice daily. 30 days supply. 60 g 2 5 Active Active Problems Problem Noted Date Diagnosed Date Hidradenitis suppurativa 02/17/2024 Tinea versicolor 02/17/2024 Multiple benign nevi of uppe r extremity, lower extremity, and trunk 02/17/2024 Encounter for ultrasound to assess anatomy and growth in twin , antepartum 09/05/2019 Overview (09/05/2019): Discordent measurements HC/AC >95% at 18 wk US O+/Antibody-neg/ IMM/ rpr-NR/ HIV-NR/ HBSag-Neg HH 13.3/41.4; Plt 322 HgA1c 5.2 Immunizations Immunization Administration Dates Next Due DTaP VACCINE IM (6wk-6yrs) 06/06/2000,04/04/2000 ,01/25/2000 HEP B VACCINE, PED/ADOL 1999,1999 HIB Hep B 06/06/2000,04/04/2000,01/25/2000 INFLUENZA VACCINE, QUADR. (F LUZONE; FLULAVAL; FLUARIX; AFLURIA QUADRIVALENT; 6MO+), 0.5 ML (IIV4) 06/04/2020 POLIO IPV 06/06/2000,04/04/2000,01/25/2000 TDAP (7yrs+) 12/05/2018,11/04/2016 Social History Tobacco Use Types Packs/Day Years Used Date Smoking Tobacco: Former Smokeless Tobacco: Never Alcohol Use Standard Drinks/Week Comments Never 0 (1 standard drink = 0.6 oz pur e alcohol) AUDIT-C Answer Date Recorded Q1: How often do you have a drink containing alc ohol? 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 Gender Identity Not on file Sexual Orientation Not on file Last Filed Vital Signs Vital Sign Reading Time Taken Comments Blood Pressure 124/82 05/17/2020 10:01 AM SNACK BAR CASHIER Pulse 81 05/17/2020 10:01 AM SNACK BAR CASHIER Temperature 36.9 C (98.4 F) 05/17/2020 10:01 AM SNACK BAR CASHIER Respiratory Rate 16 05/17/2020 10:01 AM SNACK BAR CASHIER Oxygen Saturation 98% 05/17/2020 10:01 AM SNACK BAR CASHIER Inhaled Oxygen Concentration - - Weight 92.5 kg (204 lb) 05/17/2020 10:01 AM SNACK BAR CASHIER Height 165.1 cm (5' 5) 05/17/2020 10:01 AM SNACK BAR CASHIER Body Mass Index 33.95 05/17/2020 10:01 AM SNACK BAR CASHIER Plan of Treatment Health Maintenance Due Date Last Done Comments HIV SCREENING 11/22/2014 HPV VACCINE (1 - 3-dose series) 11/22/2014 CHLAMYDIA/GONORRHEA SCREENING 2015 HEPATITIS C SCREENING 11/18/2017 PAP SMEAR 11/22/2020 DEPRESSION SCREENING 03/07/2024 COVID-19 VACCINE ( season) 2024 INFLUENZA VACCINE (#1) 2024 06/04/2020 DTAP/TDAP/TD VACCINES (6 - Td or Tdap) 12/05/2028 12/05/2018, 11/04/2016, 06/06/2000, Additional history exists ZOSTER VACCINE (1 of 2) 11/22/2049 HEPATITIS B VACCINE Completed 06/06/2000, 04/04/2000, 01/25/2000, Additional history exists HIB VACCINE Aged Out 06/06/2000, 03/08, 01/25/2000 No longer eligible based on patient's age to complete this topic MENINGOCOCCAL (Group B) VACCINE SHARED DECISION-MAKING Aged Out No longer eligible based on patient's age to complete this topic MENINGOCOCCAL GROUPS A/C/Y/W VACCINE Aged Out No longer eligible based on patient's age to complete this topic PNEUMOCOCCAL VACCINE Aged Out No long er eligible based on patient's age to complete this topic Insurance [facility]
== END 2024-11-23 10:31 | disposition home or self-care (01) ==
PROVIDERS: Visit Provider Obstetrics & Gynecology Gynecology
DX: R10.2 Pelvic and perineal pain (principal)
CPT/HCPCS: 76830; 76856